=== PATIENT | male | born 1965 | race Caucasian/White ===

== ENCOUNTER 2020-03-04 14:48 | Outpatient (REF) | payer OTHER, SELFPAY ==
[2020-03-04 15:58] LABS: MANUAL DIFF FLAG NO
[2020-03-04 16:00] LABS: Basophils Absolute Auto 0.1 X10*3/uL (0.0-0.2); Basophils Percent Auto 0.6 % (0-2); Eosinophils Absolute Auto 0.2 X10*3/uL (0.0-0.4); Eosinophils Percent Auto 2.3 % (0-4); Hematocrit 43.3 % (42-52); Imm Gran Abs Auto 0.04 X10*3/uL (0.00-0.03); Imm Gran Pct Auto 0.4 % (0.0-0.4); Lymphocytes Absolute Auto 2.3 X10*3/uL (1.2-4.9); Lymphocytes Percent Auto 23.8 % (20-40); Mean Corpuscular HGB Conc 34.6 g/dl (31.0-36.0); Mean Corpuscular Hemoglobin 32.1 pg (27.0-33.0); Mean Corpuscular Volume 92.7 fL (80-98); Mean Platelet Volume 10.7 fL (9.4-12.4); Monocytes Absolute Auto 0.8 X10*3/uL (0.1-1.2); Monocytes Percent Auto 8.3 % (2-11); Neutrophils Absolute Auto 6.1 X10*3/uL (2.0-8.3); Neutrophils Percent Auto 64.6 % (45-73); Platelet Count 189 X10*3/uL (160-400); Red Blood Count 4.67 X10*6/uL (4.60-5.80); Red Cell Distribution Width 11.5 % (11.0-16.0); White Blood Count 9.5 X10*3/uL (4.8-10.8)
[2020-03-04 16:06] LABS: INTERNATIONAL NORM RATIO 1.1 (0.9-1.1)
[2020-03-04 16:32] LABS: Alanine Aminotransferase 28 U/L (0-40); Albumin Level 4.1 g/dL (3.5-5.0); Alkaline Phosphatase 117 U/L (39-117); Anion Gap 13 (12-20); Aspartate Amino Transferase 37 U/L (5-37); Bilirubin Total 0.9 mg/dL (0.0-1.0); Blood Urea Nitrogen 10 mg/dL (9-16); Calcium 8.7 mg/dL (8.4-10.2); Carbon Dioxide 27 mmol/L (22-29); Chloride 99 mmol/L (96-108); Cholesterol 202 mg/dL; Estimated Glomerular Filt Rate > 60; Glucose Fasting 98 mg/dL (60-99); HDL Cholesterol 54 mg/dL; LDL Cholesterol Calculated 117 mg/dl; Sodium 135 mmol/L (135-145); Total Protein 7.1 g/dL (6.5-8.0); Triglycerides 156 mg/dL
[2020-03-04 16:54] LABS: Thyroid Stimulating Hormone 2.28 uIU/mL (0.32-4.0)
[2020-03-07 12:07] LABS: Vitamin B1 60 nmol/L (8-30)
== END 2020-03-04 14:49 | disposition home or self-care (01) ==
LOC: HO.LAB 14:48
PROVIDERS: Absent Provider Internal Medicine; PCP Internal Medicine; Visit Provider Surgery
DX: K62.89 Other specified diseases of anus and rectum (principal); K62.5 Hemorrhage of anus and rectum; F10.10 Alcohol abuse, uncomplicated; Z86.010 Personal history of colon polyps
CPT/HCPCS: 36415; 80053; 80061; 84425; 84443; 85025; 85610; 99212

== ENCOUNTER 2020-03-05 14:38 | Outpatient (REF) | payer SELFPAY ==
[2020-03-05 16:01] LABS: Cholesterol 183 mg/dL
== END 2020-03-05 14:39 | disposition home or self-care (01) ==
LOC: HO.LNC 14:38
PROVIDERS: Visit Provider Pathology Anatomic Pathology & Clinical Pathology
DX: Z76.89 Persons encountering health services in other specified circumstances (principal)
CPT/HCPCS: 82465

== ENCOUNTER 2020-04-09 17:07 | Outpatient (REF) | payer OTHER, SELFPAY | END 2020-04-09 17:08 | disposition home or self-care (01) | LOC: HO.LAB 17:07 | PROVIDERS: Visit Provider Internal Medicine | DX: Z20.828 Contact with and (suspected) exposure to other viral communicable diseases (principal) | CPT/HCPCS: C9803; U0003 ==

== ENCOUNTER 2020-05-31 08:22 | Day surgery (SDC) | payer OTHER, SELFPAY ==
--- NOTE | 2020-05-29 14:19 | HO.ANESPROP2 ---
Documented by User: Salena Butterfield 05/29/20 14:20 HPI - Anesthesia Eval Consult details Narrative: 54yo M for Exam Under Anesthesia, Poss Sphincterotomy, Poss Hemorrhoidectomy PMFSH Active Problems Active Problems: All Active Problems (Updated 04/09/20 @ 14:53 by Susan Lynne) Anal pain (Acute) Herniated disc (Acute) IBS (irritable bowel syndrome) (Acute) Lactose intolerance (Acute) Hypertension (Acute) History of anal fissures (Acute) History of adenomatous polyp of colon (Acute) Past Medical History Medical History Anal pain Herniated disc History of adenomatous polyp of colon History of anal fissures Hypertension IBS (irritable bowel syndrome) Laceration of liver, closed Lactose intolerance Surgical History Surgical History History of cholecystectomy History of lumbar discectomy Social History Social History Smoking Status: Never smoker Use of substances other than those prescribed or required for medical reasons: Yes Substance Use Frequency: Occasionally Advance Directives: No Advance Directives Information Provided: Yes Meds Allergies Allergy/AdvReac Type Severity Reaction Status Date / Time penicillin V Allergy Intermediate hives Verified 05/31/20 08:35 bee stings Allergy Severe hives, Uncoded 04/09/20 14:54 anaphylaxis Home Medications Medication Instructions Recorded Confirmed Last Taken Type thiamine mononitrate (vit B1) 1 tab PO DAILY 04/08/20 04/08/20 Unknown History [Vitamin B-1 (mononitrate)] omeprazole magnesium [Prilosec OTC] 20 mg PO DAILY PRN 04/09/20 04/09/20 05/31/20 07:45 History Exam Exam Date and Time: May 29, 2020 141 Pertinent Lab Results Pertinent Lab Results: Laboratory Tests 03/04/20 03/04/20 15:35 15:35 WBC 9.5 Hgb 15.0 Hct 43.3 Plt Count 189 Sodium 135 Potassium 4.0 Chloride 99 Carbon Dioxide 27 BUN 10 Creatinine 0.88 Assessment and Plan Assessment Anesthesia Assessment: Chart Reviewed Documented by User: Osito Quintana 05/31/20 09:49 [facility] Past Medical History Medical History Anal pain Herniated disc History of adenomatous polyp of colon History of anal fissures Hypertension IBS (irritable bowel syndrome) Laceration of liver, closed Lactose intolerance Surgical History Surgical History History of cholecystectomy History of lumbar discectomy Social History Social History Smoking Status: Never smoker Use of substances other than those prescribed or required for medical reasons: Yes Substance Use Frequency: Occasionally Advance Directives: No Advance Directives Information Provided: Yes Meds Allergies Allergy/AdvReac Type Severity Reaction Status Date / Time penicillin V Allergy Intermediate hives Verified 05/31/20 08:35 bee stings Allergy Severe hives, Uncoded 04/09/20 14:54 anaphylaxis Home Medications Medication Instructions Recorded Confirmed Last Taken Type thiamine mononitrate (vit B1) 1 tab PO DAILY 04/08/20 04/08/20 Unknown History [Vitamin B-1 (mononitrate)] omeprazole magnesium [Prilosec OTC] 20 mg PO DAILY PRN 04/09/20 04/09/20 05/31/20 07:45 History Exam Airway Mallampati Class: II TM Dist: >3cm Neck ROM: Full
[2020-05-31 08:37] VITALS: BMI 30.1
[2020-05-31 08:47] VITALS: BP 179/100; PULSE 112; RESP 16; TEMP 36.8; O2SAT 96
--- NOTE | 2020-05-31 08:51 | MHC.SHP ---
Pre-Procedural Eval Section B Chief Complaint: Other specified diseases of anus and rectum Details of Present Illness: has periodic pain in anus, with bleeding Relevant Social History: None Present Medications: see Short Stay Collaborative assessment Medical History: Significant History (HTN, IBS) Allergies: Allergies Allergy/AdvReac Type Severity Reaction Status Date / Time penicillin V Allergy Intermediate hives Verified 05/31/20 08:35 bee stings Allergy Severe hives, Uncoded 04/09/20 14:54 anaphylaxis Review of Systems Sugical H&P ROS: Negative: Constitution, Cardiovascular, Respiratory, Neurological, Psychiatric, Hem-Onc, Allergic/Immunologic, Gastrointestinal, Genitourinary, Musculoskeletal, Integumentary, Endocrine and Eyes/Ears/Nose/Throat Exam Surgical H&P Exam: Normal: HEENT, Normal: Heart, Normal: Lungs, Normal: Extremities, Normal: Abdomen, Normal: Skin and Normal: Neurological Plan Diagnosis/Plan: Unchanged I have reviewed the history and physical and performed a pertinent physical examination on my patient. No changes have occurred unless specified.
[2020-05-31] MEDS: Lactated Ringers 1,000 ML 100 ML IVCONT (09:11)
--- NOTE | 2020-05-31 10:37 | P.OP_ITS ---
Operative Note Operative Note Date of Service: 05/31/20 Narrative: PROCEDURE: EXAM UNDER ANESTHESIA, LEFT LATERAL INTERNAL SPHINCTEROTOMY PREOP DIAGNOSIS: ANAL PAIN, POSTERIOR MIDLINE ANAL FISSURE POSTOP DIAGNOSIS: THE SAME ABOVE SURGEON: ANITA CHAVEZ MD ANESTHESIA: GENERAL ENDOTRACHEAL TUBE The patient is a 54-year-old male with periodic and severe anal pain, which he associates with bowel movements. Examination in the office revealed what appeared to be a posterior midline fissure with sentinel pile. I therefore explained to him the option of proceeding with sphincterotomy. I discussed the technique of this procedure as well as the risks, benefits, and alternatives, and he had given consent. He was brought to the operating room and placed in prone tiffanie-knife position under general anesthesia via endotracheal tube. The buttocks where retracted with wide tape laterally. The perianal area was prepped and draped in the usual sterile fashion. A surgical time-out was done. The patient received Cefotan 2 g IV preoperatively. I infiltrated the perianal with lidocaine 1%. I retracted the skin in the posterior midline and there was note of what appeared to be deep anal fissure with note of expose sphincter. Inserted the Wang Flores retractor. I examined the anal canal circumferentially. He did have some hemorrhoid columns of both in left and right side. However, did not appear to be thrombosed or inflamed There were no other lesions seen in the anal canal. I therefore proceeded to do the left lateral internal sphincterotomy. I palpated for the intersphincteric groove on the left side. I made an incision on the skin using blade 15 overlyi ng this groove. I bluntly dissected through this skin into the sphincter muscles and defined the intersphincteric plane using a fine hemostat. I placed the hemostat within the intersphincteric plane to isolate the internal sphincter fibers. I identified the internal sphincter fibers using needle-tip electrocautery all the way to the level of the dentate line. The external sphincter was protected during this procedure. I then closed the incision running chromic 3-0 stitch. We proceeded to make sure there was good hemostasis. Once hemostasis was ensured I infiltrated the perianal Marcaine 0.5% for postop anesthesia. The procedure was then completed. The patient tolerated the procedure well with no immediate complications noted. Initial and final counts of sponges and instruments were correct. Estimated blood loss about 5 cc. The patient was extubated without difficulty and transferred to the recovery room with stable vital signs.
[2020-05-31 10:40] VITALS: BP 199/118; PULSE 90; RESP 16; TEMP 36.5; O2SAT 98
[2020-05-31 10:47] VITALS: BP 177/108; PULSE 86; RESP 18; O2SAT 96
[2020-05-31 10:49] VITALS: BP 177/107; PULSE 85; RESP 20; O2SAT 95
[2020-05-31 10:54] VITALS: BP 164/104; PULSE 84; RESP 18; O2SAT 95
== END 2020-05-31 11:30 | disposition home or self-care (01) ==
PROVIDERS: PCP Internal Medicine; Visit Provider Surgery
PROC: (CPT 46080; principal; 2020-05-31 09:50)
DX: K60.2 Anal fissure, unspecified (principal); K64.9 Unspecified hemorrhoids; I10 Essential (primary) hypertension; Z86.010 Personal history of colon polyps; Z88.0 Allergy status to penicillin
CPT/HCPCS: 46080; J1100; J2250; J2405; J3010

== ENCOUNTER → 2020-06-13 11:32 | Outpatient (BNVA) | payer OTHER, SELFPAY | PROVIDERS: PCP Internal Medicine; Visit Provider Surgery | DX: K62.89 Other specified diseases of anus and rectum (principal) | CPT/HCPCS: 99212 ==

== ENCOUNTER 2021-04-21 14:30 | Outpatient (REF) | payer OTHER, SELFPAY ==
--- NOTE | 2021-04-21 15:28 | MHC.AU.ANO ---
Adult Audiological Evaluation Date of Visit: 04/21/21 Reason for Appointment: Patient has had family and friends start expressing concern for his hearing. They have been saying he is talking louder than usual, especially if he is in a noisy setting. He reports that he gets dry, itchy skin around the opening of his ear canals. He ears also sometimes feel blocked. Has hearing been tested previously?: No Ear History: Ear Deformity: None Reported Recent Ear Drainage: None Reported Recent Ear Pain: None Reported Family History of Hearing Loss?: No Recent Ear Infections: Swimmer's Ear 2 years ago Ear Infections in Childhood: None Reported History of Ear Wax Buildup: None Reported Previous Ear Surgery: None Reported Bothersome Tinnitus/Ringing/Noises in Ears: None Reported Ear used on the phone: Left Ear Blocked/Full Sensation in Ear(s): Both Ears History of occupational noise exposure?:None Reported Medical History: Medical History: Gallbladder removal 19 years ago, Surgery on lacerated liver in 1988, Back Surgery 2.5 years ago Otoscopy: Right Ear: Dry skin in canals. Minimal cerumen. Left Ear: Dry skin in canals. Minimal cerumen. Tympanometry: Tympanometry performed due to: Patient reports sensation that ears are blocked/plugged. Right Ear: Normal Middle Ear System (Type A) Left Ear: Normal Middle Ear System (Type A) Hearing Evaluation: Transducer(s) Used: Insert Earphones Method: Conventional Audiometry Stimuli Used: Pure Tones Right Ear: Description of Hearing: Overall normal hearing. One borderline-normal threshold at 6000 Hz. Left Ear: Description of Hearing: Overall normal hearing Speech Recognition Threshold (SRT): Method Used: Recorded Lists Stimuli Used: Spondee Words Right Ear: 10 dBHL Left Ear: 10 dBHL Word Discrimination: Method: Recorded Lists Word Lists Used: W-22 Right Ear: 96% at 50 dBHL Left Ear: 96% at 50 dBHL QuickSIN: Tested binaurally at 50 dBHL: 1 dB SNR loss, which suggests normal ability to understand speech in noise Interpretation of Results: At this time, patient's hearing is overall within normal range. Recommendations: Audiological re-evaluation if changes are noted. Follow-up with PCP regarding dry skin in canals and blocked feeling in ears if problems persist. Diagnosis: Primary Diagnosis: H93.293 Abnormal Auditory Perception Signature: Provider: Shelby Andrade, CCC-A
== END 2021-04-21 14:31 | disposition home or self-care (01) ==
LOC: HO.SH 14:30
PROVIDERS: Visit Provider Internal Medicine
DX: Z13.5 Encounter for screening for eye and ear disorders (principal); H93.293 Other abnormal auditory perceptions, bilateral
CPT/HCPCS: 92557; 92567

== ENCOUNTER 2021-05-19 14:00 | Outpatient (RCR) | payer OTHER, SELFPAY ==
--- NOTE | 2021-04-08 09:50 | MHC.PT.EP ---
[facility] [place] Office [place] Office [place] Office [address] [phone] F: [phone] F: [phone] F: [phone] F: [phone] Physical Therapy Plan of Care Date of Evaluation: Date of Surgery: Diagnosis: ACUTE LOW BACK PAIN Assessment: KIET IS A PLEASANT 55 YO WHO PRESENTS WITH INCREASING LOW BACK PAIN AND LE SYMPTOMS FOLLOWING HEAVY LIFTING AT WORK. UPON EXAM IMPAIRMENTS INCLUDE DECREASED LUMBAR AND LE ROM AND STRENGTH, TIGHT HIP FLEXORS AND HAMSTRINGS LEADING TO ALTERED PELVIC POSITIONING AND INCREASED COMPRESSION ON SPINE. LUMBAR EXTENSION DECREASES THESE SYMPTOMS. FUNCTIONAL LIMITATIONS INCLUDE DECREASED ABILITY TO PERFORM HOMEMAKING AND SELF CARE TASKS, DECREASED ABILITY TO PERFORM LIFTING, PUSHING, PULLING AND CARRYING. HE REPORTS DECREASED PARTICIPATION IN RECREATIONAL AND COMMUNITY ACTIVITIES, DISRUPTED SLEEP. A PT IS A GOOD CANDIDATE FOR SKILLED PT DUE TO AGE, POTENTIAL REMEDIATION OF IMPAIRMENTS, TYPICAL DISEASE/CONDITION PROGRESSION AND PROGNOSIS, COMORBIDITIES, AND MOTIVATION. PT WOULD BENEFIT FROM TAILORED PROGRAM OF THERAPEUTIC ACTIVITIES, FUNCTIONAL TRAINING, GAIT TRAINING, POSTURAL EDUCATION, NEUROMUSCULAR RE-EDUCATION, AND MODALITIES NEEDED. Frequency and Duration: The patient will be seen 2 X WEEK FOR 4 WEEKS Short Term Goals: INITIATE HEP AND PROMOTE SELF MANAGEMENT OF SYMPTOMS IN 2 VISITS Alf Goals: IN 4 WEEKS FULL, PAIN FREE LUMBAR ROM TO PERFORM FULL FUNCTIONAL SQUAT WITH CORRECT MECHANICS AND NO VERBAL CUING TO PERFORM 3:3 LIFTING TASKS UP TO 50# WITHOUT CUING AND PAIN NO GREATER THAN 2/10 INDEPENDENT HEP AND SELF MANAGEMENT OF ANY RESIDUAL SYMPTOMS Treatment Plan: Modalities to reduce pain, spasms and effusion. Manual therapy to restore motion and function. Therapeutic exercise to improve strength and flexibility. Neuromuscular re-education for posture and balance. Therapeutic activities to return to functional activities of daily living. Electronically signed by: BARTOLO GASTELUM PT, DPT Please sign and return to therapist. Thank you for your referral.
== END 2021-06-30 16:23 | disposition home or self-care (01) ==
LOC: HO.PT 14:00
PROVIDERS: PCP Internal Medicine; Visit Provider Internal Medicine
DX: M54.50 Low back pain, unspecified (principal)
CPT/HCPCS: 97110; 97162; 97530; 97535

== ENCOUNTER 2021-05-21 12:47 | Outpatient (REF) | payer OTHER, SELFPAY ==
[2021-05-21 13:07] LABS: MANUAL DIFF FLAG NO
[2021-05-21 13:42] LABS: Basophils Absolute Auto 0.1 X10*3/uL (0.0-0.2); Basophils Percent Auto 0.6 % (0-2); Eosinophils Absolute Auto 0.4 X10*3/uL (0.0-0.4); Eosinophils Percent Auto 4.5 % (0-4); Hematocrit 44.3 % (42.0-52.0); Hemoglobin 15.2 g/dl (14.0-18.0); Imm Gran Abs Auto 0.05 X10*3/uL (0.00-0.03); Imm Gran Pct Auto 0.6 % (0.0-0.4); Lymphocytes Absolute Auto 2.8 X10*3/uL (1.2-4.9); Lymphocytes Percent Auto 32.3 % (20-40); Mean Corpuscular HGB Conc 34.3 g/dl (31.0-36.0); Mean Corpuscular Hemoglobin 31.2 pg (27.0-33.0); Mean Platelet Volume 11.2 fL (9.4-12.4); Monocytes Absolute Auto 0.8 X10*3/uL (0.1-1.2); Monocytes Percent Auto 8.6 % (2-11); Neutrophils Absolute Auto 4.7 x10*3/uL (2.0-8.3); Neutrophils Percent Auto 53.4 % (45-73); Platelet Count 194 X10*3/uL (160-400); Red Blood Count 4.87 X10*6/uL (4.60-5.80); Red Cell Distribution Width 12.2 % (11.0-16.0); White Blood Count 8.7 X10*3/uL (4.8-10.8)
[2021-05-21 13:46] LABS: Prothrombin Time 11.9 SEC (9.9-13.0)
[2021-05-21 14:07] LABS: Alanine Aminotransferase 38 U/L (0-40); Albumin Level 4.1 g/dL (3.5-5.0); Alkaline Phosphatase 85 U/L (39-117); Anion Gap 14 (12-20); Aspartate Amino Transferase 47 U/L (5-37); Bilirubin Total 1.6 mg/dL (0.0-1.0); Blood Urea Nitrogen 11 mg/dL (9-16); Calcium 9.6 mg/dL (8.4-10.2); Carbon Dioxide 26 mmol/L (22-29); Chloride 103 mmol/L (96-108); Cholesterol 215 mg/dL; Estimated Glomerular Filt Rate > 60; Glucose Fasting 117 mg/dL (60-99); HDL Cholesterol 41 mg/dL; LDL Cholesterol Calculated 120 mg/dl; Potassium 4.2 mmol/L (3.3-5.1); Sodium 139 mmol/L (135-145); Total Protein 7.4 g/dL (6.5-8.0); Triglycerides 271 mg/dL
[2021-05-21 14:30] LABS: PSA,Total (Free>4and<10) 0.45 ng/mL (0.00-4.00); Thyroid Stimulating Hormone 4.67 uIU/mL (0.32-4.0); Vitamin D 25-OH Total 14.7 ng/mL (>30)
[2021-05-21 15:03] LABS: Folate 14.5 ng/mL (> or = 4.0); Vitamin B12 427 pg/mL (200-900)
[2021-05-25 13:17] LABS: Vitamin B1 17 nmol/L (8-30)
== END 2021-05-21 12:48 | disposition home or self-care (01) ==
LOC: HO.LAB 12:47
PROVIDERS: PCP Internal Medicine; Visit Provider Internal Medicine
DX: Z12.5 Encounter for screening for malignant neoplasm of prostate (principal); F10.10 Alcohol abuse, uncomplicated
CPT/HCPCS: 36415; 80053; 80061; 82306; 82607; 82746; 84153; 84425; 84443; 85025; 85610

== ENCOUNTER 2022-01-27 18:25 | Inpatient (IN) | payer OTHER, SELFPAY ==
--- NOTE | ~2022-01-27 | CT_ITS ---
EXAMINATION: CT ABDOMEN AND PELVIS WITH CONTRAST CLINICAL INFORMATION: Mid abdominal pain, question pancreatitis COMPARISON: None TECHNIQUE: Multidetector volumetric images were obtained from the superior aspect of the liver through the pubic symphysis following administration 85 mL of Omnipaque 350 intravenous contrast. Sagittal and coronal reformatted images were obtained on the technologist's workstation. Oral contrast: No This CT examination was performed using dose optimization techniques as appropriate, variously including the following: *Automated exposure control *Adjustment of mA and/or kV according to patient size (this includes techniques or standardized protocols for targeted exams where dose is matched to indication/reason for exam; i.e. extremities or head) *Use of iterative reconstruction technique DLP: 677 mGy-cm FINDINGS: LUNG BASES: The visualized lung bases are unremarkable. LIVER, GALLBLADDER, AND BILIARY TREE: The liver is normal in size, shape, and attenuation. Right hepatic lobe calcification may represent a granuloma. No biliary ductal dilatation is present. Status post cholecystectomy. PANCREAS: There is mild stranding adjacent to the pancreatic head. SPLEEN: Unremarkable. ADRENAL GLANDS: Unremarkable. KIDNEYS AND URETERS: The kidneys are normal in size, shape, and attenuation. No hydronephrosis, hydroureter, or calculi seen. No perinephric stranding. BLADDER: Unremarkable. GASTROINTESTINAL TRACT: No evidence of bowel obstruction. Assessment for wall thickening in some segments of the colon is limited due to luminal collapse, though no significant pericolonic stranding is seen to strongly suggest a colitis. There is mild to moderate colonic diverticulosis. The appendix is unremarkable. No free fluid or free air is seen. ABDOMINAL WALL: No significant hernia is appreciated. LYMPH NODES: Normal. VASCULAR: Scattered atherosclerotic calcifications along the aorta. PELVIC VISCERA: Unremarkable. OSSEOUS STRUCTURES: There is degenerative change at L5-S1. CT/CT abdomen pelvis w IV con IMPRESSION: Mild stranding adjacent to the pancreatic head, concerning for pancreatitis. Correlation with laboratory values is recommended.
[2022-01-27 18:26] VITALS: BP 223/89; PULSE 71; RESP 18; TEMP 36.8; O2SAT 100; BMI 29.5
[2022-01-27] MEDS: Ondansetron ODT 4 MG TAB.RAPDIS TRANSLINGU (18:31)
[2022-01-27 20:32] LABS: Hematocrit 46.7 % (42.0-52.0); Hemoglobin 16.6 g/dl (14.0-18.0); Mean Corpuscular HGB Conc 35.5 g/dl (31.0-36.0); Mean Corpuscular Hemoglobin 30.7 pg (27.0-33.0); Mean Corpuscular Volume 86.5 fL (80.0-98.0); Mean Platelet Volume 10.8 fL (9.4-12.4); Platelet Count 210 X10*3/uL (160-400); Red Cell Distribution Width 11.5 % (11.0-16.0); White Blood Count 15.5 X10*3/uL (4.8-10.8)
[2022-01-27 20:49] LABS: Alanine Aminotransferase 27 U/L (0-40); Albumin Level 4.6 g/dL (3.5-5.0); Alkaline Phosphatase 113 U/L (39-117); Anion Gap 21 (12-20); Aspartate Amino Transferase 36 U/L (5-37); Bilirubin Direct 0.4 mg/dL (0.0-0.5); Bilirubin Total 1.2 mg/dL (0.0-1.0); Blood Urea Nitrogen 9 mg/dL (9-16); Calcium 9.3 mg/dL (8.4-10.2); Carbon Dioxide 27 mmol/L (22-29); Chloride 93 mmol/L (96-108); Creatinine Clr Calc Pharmacy 119.1; Estimated Glomerular Filt Rate > 60; Glucose Random 131 mg/dL (60-115); Lipase 120 U/L (8-78); Potassium 3.8 mmol/L (3.3-5.1); Sodium 137 mmol/L (135-145); Total Protein 8.1 g/dL (6.5-8.0)
[2022-01-27 20:55] LABS: COVID-19 Test Negative (Negative)
[2022-01-27 23:53] VITALS: BP 203/104; PULSE 63; RESP 20; TEMP 37; O2SAT 99
--- NOTE | 2022-01-27 23:59 | ECG_ITS ---
Test Reason : epigastric pain Blood Pressure : / mmHG Vent. Rate : 063 BPM Atrial Rate : 063 BPM P-R Int : 198 ms QRS Dur : 096 ms QT Int : 450 ms P-R-T Axes : 000 032 028 degrees QTc Int : 460 ms Normal sinus rhythm Normal ECG No previous ECGs available Referred By: Generic ED Physician Electronically Signed By:ANGELI LEVIN MD
[2022-01-28] VITALS (12 sets, daily range): BP systolic 167–206; BP diastolic 80–111; PULSE 67–100; RESP 12–20; TEMP 36.4–37; O2SAT 94–98
[2022-01-28 00:34] LABS: Troponin-I High Sensitivity 6.4 ng/L (<3.5-35.0)
--- NOTE | 2022-01-28 00:34 | ED.ABDPAIN ---
HPI - Abdominal Pain General Chief Complaint: Abdominal Pain Stated Complaint: Stomach pain Time Seen by Provider: 01/28/22 00:29 Source: patient Mode of arrival: ambulatory Limitations: no limitations History of Present Illness HPI narrative: Patient's history of alcohol abuse use 8-10 beers a day, gastroesophageal reflux disease comes here for upper abdominal pain last 2 days with nausea and vomiting unable to take any p.o. fluids pain was radiating to the back never had similar pain in the past patient is status post cholecystectomy about 20 years ago Related Data Home Medications Medication Instructions Recorded Confirmed cholecalciferol (vitamin D3) 50 50 mcg PO DAILY 01/28/22 01/28/22 mcg (2,000 unit) tablet omeprazole 20 mg capsule,delayed 20 mg PO DAILY PRN Abdominal Pain 01/28/22 01/28/22 release thiamine HCl (vitamin B1) 100 mg 1 tab PO DAILY 01/28/22 01/28/22 tablet (Vitamin B-1) Allergies Allergy/AdvReac Type Severity Reaction Status Date / Time penicillin V Allergy Intermediate hives Verified 06/13/20 11:44 bee stings Allergy Severe hives, Uncoded 04/09/20 14:54 anaphylaxis Review of Systems Review of Systems Yes all other systems are reviewed and are negative PMFSH Past Medical History Medical History Anal pain Herniated disc History of adenomatous polyp of colon History of anal fissures Hypertension IBS (irritable bowel syndrome) Laceration of liver, closed Lactose intolerance Surgical History History of cholecystectomy History of hemorrhoidectomy History of lumbar discectomy Social History Social History Household Members: Other Household Members Other:: mother Housing: House Do you presently have visiting nurse or other home services: No Alcohol intake: current Alcohol intake frequency: 3 or more drinks per day Patient Tobacco Use Status: Never used Tobacco Substance Use Type: Marijuana service: No Current occupational status: employed Physical Exam ED Vital Signs: Vital Signs - 24 hr 01/28/22 02:08 01/28/22 04:00 Temperature 98.1 F Pulse Rate 100 Respiratory Rate 18 16 Blood Pressure 167/103 H Pulse Oximetry 94 Oxygen Delivery Method Room Air BMI result Body Mass Index 29.5 Appearance: Alert. Oriented X3. No acute distress. Eyes: PERRLA, No Nystagmus ENT: Pharynx normal. Oral Mucosa moist Neck: Normal inspection. Neck supple. CVS: Normal heart rate and rhythm. Pulses normal. Respiratory: No respiratory distress. Equal air entry bilateral, no wheezing/rales/rhonchi Abdomen: Soft and nontender. Bowel sounds are present, no mass palpable, no CVA tenderness Skin: Skin warm and dry. Normal skin color. Normal skin turgor. Extremities: No lower extremity edema. No calf tenderness Neuro: Oriented X 3. No motor deficit. No sensory deficit.No cerebellar signs , cranial nerves II-XII intact MDM - Abdominal Pain Lab Data Result diagrams: 01/28/22 06:38 01/28/22 06:38 Labs: Lab Results 01/27/22 01/27/22 01/27/22 Range/Units 20:25 20:25 20:25 WBC 15.5 H (4.8-10.8) X10*3/uL RBC 5.40 (4.60-5.80) X10*6/uL Hgb 16.6 (14.0-18.0) g/dl Hct 46.7 (42.0-52.0) % MCV 86.5 (80.0-98.0) fL MCH 30.7 (27.0-33.0) pg MCHC 35.5 (31.0-36.0) g/dl RDW 11.5 (11.0-16.0) % Plt Count 210 (160-400) X10*3/uL MPV 10.8 (9.4-12.4) fL Absolute Nucleated RBC 0.000 (0.0-0.012) X10*3/uL Nucleated RBC % (auto) 0.0 (0.0-0.2) /100WBC Sodium 137 (135-145) mmol/L Potassium 3.8 (3.3-5.1) mmol/L Chloride 93 L (96-108) mmol/L Carbon Dioxide 27 (22-29) mmol/L Anion Gap 21 H (12-20) BUN 9 (9-16) mg/dL Creatinine 0.78 (0.5-1.4) mg/dL Estim Creat Clear Calc 119.1 Estimated GFR > 60 Random Glucose 131 H (60-115) mg/dL Calcium 9.3 (8.4-10.2) mg/dL Total Bilirubin 1.2 H (0.0-1.0) mg/dL Direct Bilirubin 0.4 (0.0-0.5) mg/dL AST 36 (5-37) U/L ALT 27 (0-40) U/L Alkaline Phosphatase 113 D (39-117) U/L Troponin I High Sens (<3.5-35.0) ng/L Total Protein 8.1 H (6.5-8.0) g/dL Albumin 4.6 (3.5-5.0) g/dL Triglycerides 473 mg/dL Cholesterol 183 mg/dL LDL Cholesterol, Calc TNP HDL Cholesterol 51 D mg/dL Lipase 120 H (8-78) U/L Urine Color Urine Appearance Urine pH (5.0-9.0) Ur Specific [place] (1.005-1.025) Urine Protein (Neg-Trace) mg/dL Urine Glucose (UA) (Negative) mg/dL Urine Ketones (Negative) mg/dL Urine Blood (Negative) Urine Nitrite (Negative) Ur Leukocyte Esterase (Negative) Urine RBC (0-2) /HPF Urine WBC (0-5) /HPF Ur Squamous Epith Cells (0-2) /HPF Urine Bacteria (None Seen) Hyaline Casts (0-2) /LPF COVID-19 (RAJIV) Negative (Negative) COVID-19 Clin Com See Note 01/27/22 01/28/22 Range/Units 20:25 02:17 WBC (4.8-10.8) X10*3/uL RBC (4.60-5.80) X10*6/uL Hgb (14.0-18.0) g/dl Hct (42.0-52.0) % MCV (80.0-98.0) fL MCH (27.0-33.0) pg MCHC (31.0-36.0) g/dl RDW (11.0-16.0) % Plt Count (160-400) X10*3/uL MPV (9.4-12.4) fL Absolute Nucleated RBC (0.0-0.012) X10*3/uL Nucleated RBC % (auto) (0.0-0.2) /100WBC Sodium (135-145) mmol/L Potassium (3.3-5.1) mmol/L Chloride (96-108) mmol/L Carbon Dioxide (22-29) mmol/L Anion Gap (12-20) BUN (9-16) mg/dL Creatinine (0.5-1.4) mg/dL Estim Creat Clear Calc Estimated GFR Random Glucose (60-115) mg/dL Calcium (8.4-10.2) mg/dL Total Bilirubin (0.0-1.0) mg/dL Direct Bilirubin (0.0-0.5) mg/dL AST (5-37) U/L ALT (0-40) U/L Alkaline Phosphatase (39-117) U/L Troponin I High Sens 6.4 (<3.5-35.0) ng/L Total Protein (6.5-8.0) g/dL Albumin (3.5-5.0) g/dL Triglycerides mg/dL Cholesterol mg/dL LDL Cholesterol, Calc HDL Cholesterol mg/dL Lipase (8-78) U/L Urine Color Yellow Urine Appearance Clear Urine pH 7.5 (5.0-9.0) Ur Specific [place] >= 1.030 H (1.005-1.025) Urine Protein 30 (1+) H (Neg-Trace) mg/dL Urine Glucose (UA) Negative (Negative) mg/dL Urine Ketones Negative (Negative) mg/dL Urine Blood Negative (Negative) Urine Nitrite Negative (Negative) Ur Leukocyte Esterase Negative (Negative) Urine RBC 0-2 (0-2) /HPF Urine WBC 0-5 (0-5) /HPF Ur Squamous Epith Cells 0-2 (0-2) /HPF Urine Bacteria None Seen (None Seen) Hyaline Casts 0-2 (0-2) /LPF COVID-19 (RAJIV) (Negative) COVID-19 Clin Com Discharge Plan Discharge Clinical Impression: Pancreatitis Patient Disposition: Admitted As Inpatient Interventions: Admission Worksheet (ED) Last Done: 01/28/22 18:28 Discharge Date/Time: 01/28/22 19:10
[2022-01-28] MEDS: 0.9 % Sodium Chloride 1,000 ML 999 ML IV (00:44)
[2022-01-28 00:58] LABS: Cholesterol 183 mg/dL; HDL Cholesterol 51 mg/dL; Triglycerides 473 mg/dL
[2022-01-28] MEDS: iohexoL 350 MG/ML 100 ML INFUS..BTL 85 ML IV (01:10)
[2022-01-28] MEDS: ondansetron HCL 4 MG/2 ML VIAL IVPUSH (01:27)
[2022-01-28] MEDS: Morphine Sulfate 4 MG/ML CARTRIDGE IVPUSH ×2 (01:27→18:12)
[2022-01-28] MEDS: Prochlorperazine Edisylate 10 MG/2 ML VIAL IVPUSH (02:08)
[2022-01-28] MEDS: HYDROmorphone HCl 2 MG/ML VIAL IVPUSH (02:08)
[2022-01-28 02:25] LABS: Appearance Urine Clear; Color Urine Yellow; Glucose Urine UA Negative (Negative); Leukocyte Esterase Urine Negative (Negative); Nitrite Urine Negative (Negative); PH 7.5 (5.0-9.0); Specific Gravity - Urine >= 1.030 (1.005-1.025); UMIC TRIGGER UACC YES; Urine Blood Negative (Negative); Urine Ketones Negative (Negative); Urine Protein 30 (1+) mg/dL (Neg-Trace)
[2022-01-28 02:29] LABS: Bacteria Urine None Seen (None Seen); Hyaline Casts Urine 0-2 /LPF (0-2); RBC Urine 0-2 /HPF (0-2); Squamous Epithelial Cell Urine 0-2 /HPF (0-2); WBC Urine 0-5 /HPF (0-5)
[2022-01-28] MEDS: Metoprolol Tartrate 5 MG/5 ML VIAL IVPUSH (03:03)
--- NOTE | 2022-01-28 04:52 | P.HPHOSP_ITS ---
History of Present Illness Date of Service: 01/28/22 Chief Complaint: Abdominal Pain This is a 56-year-old male with a pertinent history of gastroesophageal reflux disease who presents to the emergency department for evaluation of abdominal pain. Patient states he had sudden-onset severe epigastric pain about 24 hours prior to presentation. It was nonradiating, constant, progressive and worse with p.o. intake. No relieving factors. States it was the worst pain he has ever experienced. It was associated with diarrhea and nonbloody emesis. Patient states he could not tolerate p.o. intake due to severe nausea and occasional vomiting. Does endorse that he drinks about 8-10 beers a day x3-4 days a week. Patient went to a game 1 day prior to the onset of abdominal pain and states he drank more alcohol than he usually does. Denies fever, chills, shortness of breath, chest discomfort, changes in urinary habits. Patient's gallbladder was removed about 20 years ago. In the emergency department imaging revealed mild stranding adjacent to pancreatic head Review of Systems Review of Systems: All 13 review of systems are negative except as noted in [facility] Medical History Anal pain Herniated disc History of adenomatous polyp of colon History of anal fissures Hypertension IBS (irritable bowel syndrome) Laceration of liver, closed Lactose intolerance Functional capacity: independent ambulation Surgical History History of cholecystectomy History of hemorrhoidectomy History of lumbar discectomy Social History Advance Directives: No Advance Directives Information Provided: No Meds Allergies Allergy/AdvReac Type Severity Reaction Status Date / Time penicillin V Allergy Intermediate hives Verified 06/13/20 11:44 bee stings Allergy Severe hives, Uncoded 04/09/20 14:54 anaphylaxis Active Medications: Current Medications Thiamine HCl 100 mg/ Sodium (Chloride) 101 mls @ 202 mls/hr IV DAILY FORMERLY [facility], [facility] Pharmacy Consult (Consult Rx Perform Med Rec) 1 each MISCELLANE ONCE STA Stop: 01/28/22 04:32 Home Medications Medication Instructions Recorded Confirmed Last Taken Type thiamine HCl (vitamin B1) 100 mg 1 tab PO DAILY 01/28/22 01/28/22 Unknown History tablet (Vitamin B-1) Physical Exam Vital Signs and Narrative: Vital Signs: Last Vital Signs Temp 98.1 F 01/28/22 04:00 Pulse 100 01/28/22 04:00 Resp 16 01/28/22 04:00 BP 167/103 H 01/28/22 04:00 Pulse Ox 94 01/28/22 04:00 O2 Del Method 01/28/22 04:00 BMI result Body Mass Index 29.5 Middle-aged male lying in bed in mild distress Neck supple, no JVD Tachycardic with regular rhythm, S1-S2 heard Regular breath sounds bilaterally, no wheezing or crackles appreciated Abdomen with tenderness to epigastric region with mild palpation, no guarding, no rebound tenderness, no rigidity Patient is awake, alert and oriented to self, place, time and person ; no focal motor deficit Psych: Normal mood No pedal edema Results Labs CBC and Chem 7: 01/27/22 20:25 01/27/22 20:25 Labs: Laboratory Results - last 24 hr 01/27/22 01/27/22 01/27/22 20:25 20:25 20:25 MCV 86.5 MCH 30.7 MCHC 35.5 RDW 11.5 Plt Count 210 MPV 10.8 Absolute Nucleated RBC 0.000 Nucleated RBC % (auto) 0.0 Anion Gap 21 H Estim Creat Clear Calc 119.1 Estimated GFR > 60 Random Glucose 131 H Calcium 9.3 Total Bilirubin 1.2 H Direct Bilirubin 0.4 AST 36 ALT 27 Alkaline Phosphatase 113 D Troponin I High Sens Total Protein 8.1 H Albumin 4.6 Triglycerides 473 Cholesterol 183 LDL Cholesterol, Calc TNP HDL Cholesterol 51 D Lipase 120 H Urine Color Urine Appearance Urine pH Ur Specific [place] Urine Protein Urine Glucose (UA) Urine Ketones Urine Blood Urine Nitrite Ur Leukocyte Esterase Urine RBC Urine WBC Ur Squamous Epith Cells Urine Bacteria Hyaline Casts COVID-19 (RAJIV) Negative COVID-19 Clin Com See Note 01/27/22 01/28/22 20:25 02:17 MCV MCH MCHC RDW Plt Count MPV Absolute Nucleated RBC Nucleated RBC % (auto) Anion Gap Estim Creat Clear Calc Estimated GFR Random Glucose Calcium Total Bilirubin Direct Bilirubin AST ALT Alkaline Phosphatase Troponin I High Sens 6.4 Total Protein Albumin Triglycerides Cholesterol LDL Cholesterol, Calc HDL Cholesterol Lipase Urine Color Yellow Urine Appearance Clear Urine pH 7.5 Ur Specific [place] >= 1.030 H Urine Protein 30 (1+) H Urine Glucose (UA) Negative Urine Ketones Negative Urine Blood Negative Urine Nitrite Negative Ur Leukocyte Esterase Negative Urine RBC 0-2 Urine WBC 0-5 Ur Squamous Epith Cells 0-2 Urine Bacteria None Seen Hyaline Casts 0-2 COVID-19 (RAJIV) COVID-19 Clin Com Imaging Radiologist's Impressions: Impressions Abdomen/Pelvis CT 01/28/22 01:09 IMPRESSION: Mild stranding adjacent to the pancreatic head, concerning for pancreatitis. Correlation with laboratory values is recommended. Assessment and Plan (1) Pancreatitis: Status: Acute (2) Alcohol use: Status: Acute (3) GERD (gastroesophageal reflux disease): Status: Acute Plan This is a 56-year-old male with a pertinent history of gastroesophageal reflux disease who presents to the emergency department for evaluation of abdominal pain. #. Acute pancreatitis, mild -likely related to alcohol use. Will admit patient and keep NPO for bowel rest. Resuscitate with IV crystalloids and pain management with IV morphine p.r.n. Advance diet as tolerated #. Alcohol use disorder -counseled patient extensively and patient understands. Is motivated to quit. Monitor for withdrawal #. Gastroesophageal reflux disease -on omeprazole DVT prophylaxis: Lovenox 40 mg daily Diet: NPO Full code Patient will require two night minimum hospital stay for IV fluid resuscitation and IV pain management for pancreatitis Quality Stroke Does the patient have a stroke diagnosis?: No VTE Prior VTE?: No VTE Risk Level:: Medical - moderate - high VTE Device Contraindication: Treatment Not Indicated VTE Drug Contraindication: N/A - Med Ordered
[2022-01-28] MEDS: 0.9 % Sodium Chloride 1,000 ML 250 ML IV (05:38)
[2022-01-28] MEDS: Enoxaparin Sodium 40 MG/0.4 ML SYRINGE SUBCUT (05:39)
[2022-01-28 06:55] LABS: Basophils Percent Auto 0.3 % (0-2); Eosinophils Percent Auto 0.1 % (0-4); Hematocrit 43.4 % (42.0-52.0); Hemoglobin 15.4 g/dl (14.0-18.0); Imm Gran Abs Auto 0.07 X10*3/uL (0.00-0.03); Imm Gran Pct Auto 0.5 % (0.0-0.4); Lymphocytes Absolute Auto 1.8 X10*3/uL (1.2-4.9); Lymphocytes Percent Auto 12.1 % (20-40); MANUAL DIFF FLAG SCAN; Mean Corpuscular HGB Conc 35.5 g/dl (31.0-36.0); Mean Corpuscular Hemoglobin 31.2 pg (27.0-33.0); Mean Platelet Volume 11.1 fL (9.4-12.4); Monocytes Absolute Auto 2.2 X10*3/uL (0.1-1.2); Monocytes Percent Auto 14.7 % (2-11); Neutrophils Percent Auto 72.3 % (45-73); Platelet Count 173 X10*3/uL (160-400); Red Blood Count 4.93 X10*6/uL (4.60-5.80); Red Cell Distribution Width 11.6 % (11.0-16.0); SCAN SMEAR FLAG 1; White Blood Count 15.1 X10*3/uL (4.8-10.8)
[2022-01-28 07:02] LABS: Anion Gap 18 (12-20); Blood Urea Nitrogen 7 mg/dL (9-16); Calcium 8.4 mg/dL (8.4-10.2); Carbon Dioxide 25 mmol/L (22-29); Chloride 98 mmol/L (96-108); Estimated Glomerular Filt Rate > 60; Glucose Random 124 mg/dL (60-115); Potassium 3.4 mmol/L (3.3-5.1); Sodium 138 mmol/L (135-145)
[2022-01-28 08:09] LABS: SLIDE REVIEW VERIFIED
[2022-01-28] MEDS: Thiamine HCL 100 MG in 0.9 % Sodium Chloride 100 ML 202 MG IV (08:35)
[2022-01-28] MEDS: Omeprazole 40 MG CAPSULE.DR PO (08:51)
--- NOTE | 2022-01-28 09:04 | PHA.MEDREC ---
Pharmacy Consult ? Medication Reconciliation Pharmacy has completed the medication reconciliation.
[2022-01-28] MEDS: amLODIPine Besylate 5 MG TABLET PO (09:07)
[2022-01-28] MEDS: 0.9 % Sodium Chloride Flush 3 ML SYRINGE IVFLUSH ×2 (09:08→18:13)
--- NOTE | 2022-01-28 10:20 | PM.EVENT ---
Event Note Date of Service: 01/28/22 Event Note: Pt seen and examined. Admitted this morning with acute pancreatitis, elevated bP not on meds, drinks moderate to heavy per his report therefore high risk for withdrawal. Start Phenobarb. Add Norvasc for tamika BP, advance to clear diet. Monitor WBC, no si/sx of infection
[2022-01-28] MEDS: PHENobarbitaL sodium 130 MG/ML IM ONCE 230 MG IM (12:25)
--- NOTE | 2022-01-28 15:26 | MHC.CM.PN ---
Met with patient in regards to discharge planning. Patient lives with his mother, ambulates independently and had no services prior to coming to the hospital. No services anticipated to be needed. PCP verified. Patient received 1 J&J vaccine. Patient denies having a HCP. Information provided. Patient not interested in completing one at this time. Patient's mother will transport him home when medically stable. Continue to monitor for d/c needs.
[2022-01-28] MEDS: PHENobarbitaL sodium 130 MG/ML VIAL IM Q3Hx2 170 MG IM ×2 (15:49→18:11)
[2022-01-29] MEDS: Enoxaparin Sodium 40 MG/0.4 ML SYRINGE SUBCUT (05:00)
[2022-01-29] MEDS: 0.9 % Sodium Chloride Flush 3 ML SYRINGE IVFLUSH (05:01)
[2022-01-29 05:59] LABS: Hemoglobin 16.2 g/dl (14.0-18.0); Mean Corpuscular HGB Conc 34.5 g/dl (31.0-36.0); Mean Corpuscular Hemoglobin 30.9 pg (27.0-33.0); Mean Corpuscular Volume 89.5 fL (80.0-98.0); Mean Platelet Volume 11.1 fL (9.4-12.4); Platelet Count 176 X10*3/uL (160-400); Red Blood Count 5.25 X10*6/uL (4.60-5.80); Red Cell Distribution Width 11.7 % (11.0-16.0); White Blood Count 10.3 X10*3/uL (4.8-10.8)
[2022-01-29 06:48] VITALS: BP 136/90; PULSE 92; RESP 18; TEMP 36.1; O2SAT 95
[2022-01-29] MEDS: amLODIPine Besylate 5 MG TABLET PO (08:34)
[2022-01-29] MEDS: Omeprazole 40 MG CAPSULE.DR PO (08:34)
[2022-01-29] MEDS: Cholecalciferol (Vitamin D3) 25 MCG TABLET 50 MCG PO (08:34)
[2022-01-29] MEDS: PHENobarbitaL 15 MG TABLET 45 MG PO (08:34)
[2022-01-29] MEDS: Thiamine HCL 100 MG in 0.9 % Sodium Chloride 100 ML 202 MG IV (08:36)
--- NOTE | 2022-01-29 11:47 | PM.DS ---
DS: Providers Provider Date of Service: 01/29/22 Date of admission: 01/28/22 04:50 Primary care physician: Alejo Díaz DO DS: Diagnosis Discharge Diagnosis (1) Pancreatitis: Status: Acute (2) Alcohol use: Status: Acute (3) GERD (gastroesophageal reflux disease): Status: Acute DS: Summary Hospital Course Hospital Course: Chief Complaint: Abdominal Pain This is a 56-year-old male with a pertinent history of gastroesophageal reflux disease who presents to the emergency department for evaluation of abdominal pain.? Patient states he had sudden-onset severe epigastric pain about 24 hours prior to presentation.? It was nonradiating, constant, progressive and worse with p.o. intake.? No relieving factors.? States it was the worst pain he has ever experienced.? It was associated with diarrhea and nonbloody emesis.? Patient states he could not tolerate p.o. intake due to severe nausea and occasional vomiting.? Does endorse that he drinks about 8-10 beers a day x3-4 days a week.? Patient went to a game 1 day prior to the onset of abdominal pain and states he drank more alcohol than he usually does.? Denies fever, chills, shortness of breath, chest discomfort, changes in urinary habits.? Patient's gallbladder was removed about 20 years ago. In the emergency department imaging revealed mild stranding adjacent to pancreatic head Hospital course: Patient was admitted with abdominal pain and found to have acute pancreatitis likely related to alcohol use, he was also noted to have elevatd BP with no diagnosis of HTN BP was as high as 206/109. For acute pancreatitis treated with Iv, pain meds and diet advanced slowly and presently tolerating regular diet. For HTN--started on Norvasc 5 mg and BP presently 136/90. He had leukocytois likely reactive and resolved. Alcohol cessation has discussed at [facility] and he will work on it. Time Spent with Patient Time attestation: Total time spent providing and/or coordinating discharge services: Discharge coordination time: Greater than 30 minutes Quality: Safe Use of Opioids Does Pt have an Active Cancer Diagnosis on the Problem List?: No Quality: Stroke Does the patient have a stroke diagnosis?: No Physical Exam Vital Signs: Vital Signs: Last Vital Signs Temp 97 F 01/29/22 06:48 Pulse 92 01/29/22 06:48 Resp 18 01/29/22 06:48 BP 136/90 H 01/29/22 06:48 Pulse Ox 95 01/29/22 06:48 O2 Del Method 01/29/22 06:48 BMI result Body Mass Index 29.5 Const: Other: General: AO X 3, no acute distress Resp: CTA bilateral CVS: S1,S2,RRR GI: +BS, NT, no distention Skin: No rash Neuro: motor grossly intact Psych: appropriate affect DS: Data Data Completed and Pending Labs on day of discharge: Laboratory Results - last 24 hr 01/29/22 05:24 WBC 10.3 RBC 5.25 Hgb 16.2 Hct 47.0 MCV 89.5 MCH 30.9 MCHC 34.5 RDW 11.7 Plt Count 176 MPV 11.1 Absolute Nucleated RBC 0.000 Nucleated RBC % (auto) 0.0 Discharge Plan Discharge Anticipated Discharge Date/Time: 01/29/22 11:44 Patient Disposition: Home, Self-Care Discharge Diagnosis: Acute pancreatitis Referrals: Alejo Díaz DO [Primary Care Provider] - 1 Week Discharge Medications: New amlodipine 5 mg Tablet 5 mg PO DAILY Qty: 30 0RF Protocol: Hold for SBP< HOLD for SBP < : 90 Continued thiamine HCl (vitamin B1) [Vitamin B-1] 100 mg tablet 1 tab PO DAILY cholecalciferol (vitamin D3) 50 mcg (2,000 unit) Tablet 50 mcg PO DAILY omeprazole 20 mg Capsule,Delayed Release(Dr/Ec) 20 mg PO DAILY PRN (Reason: Abdominal Pain) Discharge Orders: Discharge Order (Routine); Ordered 01/29/22 Ordered By: Shivam Theodore Diet: Advance to usual diet Activity on Discharge: As tolerated Stand Alone Forms: Patient Portal Discharge page Care Plan Goals: abstinence from alcohol prevent pancreatitis Health Concerns: alcohol use HTN Plan of Treatment: Take Norvasc as directed and follow up with your Doctor for medication adjustment if needed Assessment: as above
--- NOTE | 2022-01-29 13:06 | MHC.CM.PN ---
PT MEDIALLY CLEARED FOR D/C HOME W/PT'S MOTHER FOR TRANSPORT.
== END 2022-01-29 13:01 | disposition home or self-care (01) | DRG 282 ==
LOC: HO.ED 01-28 02:27 → HO.EDOVER 01-28 04:58 → HO.S3 01-28 17:28
PROVIDERS: Emergency Medicine; Admitting Provider Student in an Organized Health Care Education/Training Program; Emergency Provider Internal Medicine; PCP Internal Medicine; Visit Provider Internal Medicine
DX: K85.20 Alcohol induced acute pancreatitis without necrosis or infection (principal); F10.10 Alcohol abuse, uncomplicated; I10 Essential (primary) hypertension; K21.9 Gastro-esophageal reflux disease without esophagitis; Z20.822 Contact with and (suspected) exposure to COVID-19; Z90.49 Acquired absence of other specified parts of digestive tract; Z86.010 Personal history of colon polyps; Z88.0 Allergy status to penicillin; Z79.899 Other long term (current) drug therapy
CPT/HCPCS: 36415; 74177; 80048; 80061; 80076; 81001; 83690; 84484; 85025; 85027; 87635; 93005; 96361; 96374; 96375; 99218; 99285; J1170; J1650; J2270; J2405; J2560; J3411; Q9967

== ENCOUNTER 2022-04-10 07:09 | Outpatient (REF) | payer OTHER, SELFPAY ==
--- NOTE | ~2022-04-10 | XR_ITS ---
EXAMINATION: XR SHOULDER, LEFT CLINICAL INFORMATION: Pain. COMPARISON: None TECHNIQUE: AP external rotation, Grashey, scapular Y, and axillary views of the left shoulder. FINDINGS: The bones and soft tissues are normal. No fracture. Glenohumeral and acromioclavicular alignment is anatomic with normal joint space. No abnormal soft tissue calcifications. XR/XR shoulder LT min 2V IMPRESSION: Unremarkable left shoulder exam.
== END 2022-04-10 07:10 | disposition home or self-care (01) ==
LOC: HO.HOSX 07:09
PROVIDERS: Visit Provider Physician Assistant
DX: M75.82 Other shoulder lesions, left shoulder (principal); M75.22 Bicipital tendinitis, left shoulder
CPT/HCPCS: 20610; 73030; J1040

== ENCOUNTER 2022-12-25 16:03 | Outpatient (REF) | payer OTHER, SELFPAY ==
[2022-12-25 16:15] LABS: MANUAL DIFF FLAG NO
[2022-12-25 16:25] LABS: Basophils Absolute Auto 0.1 X10*3/uL (0.0-0.2); Basophils Percent Auto 0.9 % (0-2); Eosinophils Absolute Auto 0.2 X10*3/uL (0.0-0.4); Eosinophils Percent Auto 2.5 % (0-4); Hematocrit 43.7 % (42.0-52.0); Hemoglobin 15.2 g/dl (14.0-18.0); Imm Gran Abs Auto 0.02 X10*3/uL (0.00-0.03); Imm Gran Pct Auto 0.3 % (0.0-0.4); Lymphocytes Absolute Auto 2.5 X10*3/uL (1.2-4.9); Lymphocytes Percent Auto 32.9 % (20-40); Mean Corpuscular HGB Conc 34.8 g/dl (31.0-36.0); Mean Corpuscular Hemoglobin 31.3 pg (27.0-33.0); Mean Corpuscular Volume 90.1 fL (80.0-98.0); Mean Platelet Volume 10.7 fL (9.4-12.4); Monocytes Absolute Auto 0.8 X10*3/uL (0.1-1.2); Monocytes Percent Auto 10.1 % (2-11); Neutrophils Percent Auto 53.3 % (45-73); Platelet Count 186 X10*3/uL (160-400); Red Blood Count 4.85 X10*6/uL (4.60-5.80); Red Cell Distribution Width 11.9 % (11.0-16.0); White Blood Count 7.5 X10*3/uL (4.8-10.8)
[2022-12-25 16:56] LABS: Alanine Aminotransferase 30 U/L (0-40); Albumin Level 4.1 g/dL (3.5-5.0); Alkaline Phosphatase 117 U/L (39-117); Aspartate Amino Transferase 40 U/L (5-37); Bilirubin Total 1.4 mg/dL (0.0-1.0); Blood Urea Nitrogen 10 mg/dL (9-16); Calcium 9.3 mg/dL (8.4-10.2); Carbon Dioxide 27 mmol/L (22-29); Chloride 105 mmol/L (96-108); Cholesterol 157 mg/dL (<200); Estimated Glomerular Filt Rate > 60; Glucose Fasting 110 mg/dL (60-99); HDL Cholesterol 44 mg/dL (>40); LDL Cholesterol Calculated 75 mg/dL (<100); Lipase 46 U/L (8-78); Sodium 140 mmol/L (135-145); Total Protein 7.4 g/dL (6.5-8.0); Triglycerides 190 mg/dL (<150)
[2022-12-25 16:59] LABS: Amylase 26 U/L (28-100); Anion Gap 13 (12-20)
[2022-12-25 17:15] LABS: Thyroid Stimulating Hormone 3.62 uIU/mL (0.32-4.0); Vitamin D 25-OH Total 52.7 ng/mL (>30)
== END 2022-12-25 16:04 | disposition home or self-care (01) ==
LOC: HO.LAB 16:03
PROVIDERS: PCP Internal Medicine; Visit Provider Internal Medicine
DX: F10.10 Alcohol abuse, uncomplicated (principal); I10 Essential (primary) hypertension; E55.9 Vitamin D deficiency, unspecified
CPT/HCPCS: 36415; 80053; 80061; 82150; 82306; 83690; 84443; 85025

== ENCOUNTER 2023-04-08 15:00 | Outpatient (AMB) | payer OTHER, SELFPAY ==
[2023-04-08 15:05] VITALS: BP 158/87; PULSE 82; BMI 30.7
--- NOTE | 2023-04-08 15:05 | MHC.OFFVIS ---
Intake Vital Signs 04/08/23 15:05 Height 5 ft 10 in Weight 214 lb BMI 30.7 BP 158/87 H Blood Pressure Location Rt brachial Position Standing Pulse 82 Intake Visit Reasons: tubular adenoma Intake Note: This patient presents for a colonoscopy screening. Patient c/o; last colonoscopy 2018, reports no rectal bleeding or pain at this time. Instructional Design Manager Required: No Accompanied by: Self / Same As Patient Allergies penicillin V Allergy (Intermediate, Verified 04/08/23 15:05) hives bee stings Allergy (Severe, Uncoded 04/08/23 15:05) hives, anaphylaxis HPI tubular adenoma HPI Details 57-year-old male history of colon polyps. He has a history of a sessile serrated polyp removed on colonoscopy in 2019. I recommended a shorter interval for his repeat colonoscopy. He currently denies significant complaints. [facility] Medical History Alcohol use Anal pain GERD (gastroesophageal reflux disease) Herniated disc History of adenomatous polyp of colon History of anal fissures Hypertension IBS (irritable bowel syndrome) Laceration of liver, closed Lactose intolerance Surgical History History of cholecystectomy History of hemorrhoidectomy History of lumbar discectomy Social History (Updated 04/10/22 @ 08:27 by GLORIA Gatica) Household Members: Other Household Members Other:: mother Housing: House Do you presently have visiting nurse or other home services: No Alcohol intake: current Alcohol intake frequency: 3 or more drinks per day Patient Tobacco Use Status: Never used Tobacco Substance Use Type: Marijuana service: No Current occupational status: employed 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, 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 Review of Systems Const Denies chills and Denies fever(s) Card Denies chest pain, Denies dyspnea and Denies dyspnea on exertion Resp Denies cough, Denies dyspnea and Denies dyspnea on exertion GI Denies hematochezia and Denies change in bowel habits Denies hematuria and Denies difficulty urinating Musc Denies back pain and Denies limited range of motion Neuro Denies focal weakness and Denies convulsions Psych Denies depression and Denies mood swings Physical Exam Const General: comfortable and no acute distress Orientation/consciousness: patient oriented x3 Neck Neck: Yes no lymphadenopathy Resp Auscultation: clear to auscultation bilaterally Cardio Rhythm: regular rhythm GI Palpation (GI): Soft to palpation, nontender and no guarding Neuro General: patient oriented x3 Assessment & Plan Assessment & Plan (1) History of adenomatous polyp of colon: Code(s): Z86.010 - Personal history of colonic polyps Plan: I had recommended a short interval for his follow-up colonoscopy in view of his sessile serrated polyp in 2019. I reviewed the technique of colonoscopy with him. I discussed the risks including but not limited to bleeding and perforation, as well as the benefits and alternatives. He understands and wants to proceed. Medications: New sodium,potassium,mag sulfates 17.5-3.13-1.6 gram (Suprep Bowel Prep Kit) DILUTE; drink full amount early evening before AND next morning at least 2 hr before procedure; follow w 960 mL water PO 354 mL 0RF Coding Level of Care Code New Pt Level 3 (21012) Diagnoses History of adenomatous polyp of colon Z86.010
== END 2023-04-08 15:19 | disposition home or self-care (01) ==
PROVIDERS: PCP Internal Medicine; Visit Provider Surgery
DX: Z86.010 Personal history of colon polyps (principal)
CPT/HCPCS: 99213

== ENCOUNTER → 2023-04-08 15:00 | Outpatient (BNVA) | payer OTHER, SELFPAY | PROVIDERS: PCP Internal Medicine; Visit Provider Surgery ==

== ENCOUNTER 2023-05-26 11:04 | Outpatient (AMB) | payer OTHER, SELFPAY ==
[2023-05-26 11:16] VITALS: BMI 30.7
--- NOTE | 2023-05-26 11:16 | A.OFFVIS_ITS ---
Intake Vital Signs 05/26/23 11:16 Height 5 ft 10 in Weight 214 lb BMI 30.7 Intake Visit Reasons: new prob- palmar fasciitis of the hands Intake Note: Kenrick 57 yr old male presents today for a new problem for his palmar fasciitis of his left hand small and ring finger. States his finger begin to contract inward about 25 yrs ago after an basketball injury. Reports no pain. Denies numbness, tingling or locking of any finger. Allergies penicillin V Allergy (Intermediate, Verified 05/26/23 11:21) hives bee stings Allergy (Severe, Uncoded 05/26/23 11:21) hives, anaphylaxis HPI new prob- palmar fasciitis of the hands HPI Details Kenrick is a 57 year old left hand dominant man who presents with complaints of left hand contractures. He complains of contractures in his ring & small fingers. He says his small finger contracture has been present for many years, and he believes this began following a Basketball injury when he was ~31 years old. He does say that his contracture has been worsening in his small finger for the last ~10 years. He says his ring finger 1st had a lump in his palm, and this progressed to a contracture over the last 2 years. He would like to discuss treatment options. 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 [facility] Medical History Alcohol use Anal pain GERD (gastroesophageal reflux disease) Herniated disc History of adenomatous polyp of colon History of anal fissures Hypertension IBS (irritable bowel syndrome) Laceration of liver, closed Lactose intolerance Surgical History History of hemorrhoidectomy History of lumbar discectomy History of cholecystectomy Social History Household Members: Other Household Members Other:: mother Housing: House Do you presently have visiting nurse or other home services: No Alcohol intake: current Alcohol intake frequency: 3 or more drinks per day Patient Tobacco Use Status: Never used Tobacco Substance Use Type: Marijuana service: No Current occupational status: employed 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, 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 Review of Systems Const All systems reviewed & are unremarkable except as noted in HPI and below Physical Exam Vital Signs: BMI result Body Mass Index 30.7 Const General: cooperative, healthy appearing and no acute distress Orientation/consciousness: patient oriented x3 HEENT Head: Yes normocephalic and Yes atraumatic Eyes EOM: EOMs intact bilaterally Resp Effort & Inspection: normal respiratory effort and able to speak in complete sentences Cardio Jugular venous distension: no JVD Skin General skin exam: turgor normal Rashes: no rashes Neuro General: patient oriented x3 Extrem Other: Evaluation of right Upper Extremity: The patient is alert, oriented, and in no acute distress Neuro: Median, Ulnar, Radial nerves motor and sensory intact and sensation is normal to the tips of all digits Vascular: Cap refill brisk ROM: He can make a tight fist with good strength He can actively extend all of his digits. He has a right ring finger central Dupuytren's cord for the most part in the palm with a contracture of 30 degrees MCP/0 degrees PIP. He also has a contracture of the right small finger. Some of this was present following his basketball injury, but some of this has gotten quite a bit worse over the last few years and is likely related to a Dupuytren's cord that I appreciated on the radial aspect of the digit extending from about the proximal phalanx level across the PIP and out past the D IP joint. The contracture appears to be 0 degree MCP/45 degree PIP/45 degree DIP. I do not appreciate any ulnar-sided cords involving the small finger. Similarly, I do not appreciate a cord in the palm of the hand that extends to the small finger. Skin: No lacerations or abrasions. General: No Ecchymosis. No Erythema or evidence of infection. Psych Appearance: grossly normal Affect: normal affect Attitude: cooperative Assessment & Plan Assessment & Plan (1) Dupuytren's contracture of right hand: Code(s): M72.0 - Palmar fascial fibromatosis [Dupuytren] Plan Assessment & Plan: 1. Right Ring finger Dupuytrens contrature 30/0 2. Right Small finger Dupuytrens contrature 0/45/45 Of note, he also had a contracture of this digit from a basketball injury over 30 years ago. However, his small finger contracture has gotten noticeably worse in the last few years, and the worsening is most likely secondary to Dupuytren's.. I educated him about this condition I discussed operative and non-operative treatment options The patient would like to proceed with surgery, but he would like to have this done sometime in the summer as he works as [employer] and is busy this time of year The risks and benefits of operative treatment were discussed with the patient and the patient wishes to proceed with surgery. These risks include, but are not limited to risk of damage to blood vessels, nerves, tendons, infection, recurrence, incomplete relief of preoperative symptoms, persistent pain, possible need for further surgery and the risks associated with regional blocks and anesthesia. The plan is to take the patient to the operating room sometime in the next few weeks for the following procedures: 1. Right ring finger partial Dupuytrens fasciectomy, under general 2. Right small finger partial Dupuytrens fasciectomy, under general All of the preoperative paperwork including the consent was reviewed today. All the patient's questions were answered. The patient understands that they will be contacted by our personnel scheduler soon to schedule this procedure He denies Diabetes, blood thinners, asthma, heart, lung, kidney issues Sounds like almost all of his work in maintenance at [employer] is hands on and or dirty. I certainly think it is reasonable for him to take 4 weeks off, and I noted 4-6 weeks is a reasonable range. He is going to look into whether he has some short term disability available. He is also trying to delay into the summer to try to build up some sick leave, and vacation time. At this point he is thinking surgery in the summer, with most of the students being gone, would likely work well. Scribed for Carmen Man MD by Luis Dias, biomedical engineering technician, on 05/26/23 at 11:35 AM, EST. Coding Level of Care Code New Pt Level 4 (03325) Diagnoses Dupuytren's contracture of right hand M72.0
== END 2023-05-26 11:48 | disposition home or self-care (01) ==
PROVIDERS: PCP Internal Medicine; Visit Provider Orthopaedic Surgery
DX: M72.0 Palmar fascial fibromatosis [Dupuytren] (principal)
CPT/HCPCS: 99214

== ENCOUNTER → 2023-05-26 11:04 | Outpatient (BNVA) | payer OTHER, SELFPAY | PROVIDERS: PCP Internal Medicine; Visit Provider Orthopaedic Surgery ==

== ENCOUNTER 2023-05-28 08:18 | Day surgery (SDC) | payer OTHER, SELFPAY ==
[2023-05-26 09:41] VITALS: BMI 30.7
[2023-05-28 08:26] VITALS: BMI 31.6
[2023-05-28] MEDS: Lactated Ringers 1,000 ML 80 ML IVCONT (08:33)
[2023-05-28 08:40] VITALS: BP 139/92; PULSE 97; RESP 18; TEMP 36.7; O2SAT 98
--- NOTE | 2023-05-28 08:56 | MHC.SHP ---
Pre-Procedural Eval Section A - 24 Hr Update-Section A only Date of Service: 05/28/23 Section B - Complete if H&P > 30 days Chief Complaint: Personal history of colonic polyps Details of Present Illness: hx of sessile serrated polyp in 2019 Relevant Social History: None Present Medications: see Short Stay Collaborative assessment Medical History: Significant History (htn, ibs, back pain) Allergies: Allergies Allergy/AdvReac Type Severity Reaction Status Date / Time penicillin V Allergy Intermediate hives Verified 05/28/23 08:27 bee stings Allergy Severe hives, Uncoded 05/28/23 08:27 anaphylaxis Review of Systems Sugical H&P ROS: Negative: Constitution, Cardiovascular, Respiratory, Neurological, Psychiatric, Hem-Onc, Allergic/Immunologic, Gastrointestinal, Genitourinary, Musculoskeletal, Integumentary, Endocrine and Eyes/Ears/Nose/Throat Exam Surgical H&P Exam: Normal: HEENT, Normal: Heart, Normal: Lungs, Normal: Extremities, Normal: Abdomen, Normal: Skin and Normal: Neurological Plan Diagnosis/Plan: Unchanged I have reviewed the history and physical and performed a pertinent physical examination on my patient. No changes have occurred unless specified. Time Spent With Patient Time: Total time managing care of this patient today ____ minutes.
--- NOTE | 2023-05-28 09:06 | P.CONAN_ITS ---
[facility] Active Problems Active Problems: All Active Problems (Updated 05/26/23 @ 11:34 by Luis Dias) Dupuytren's contracture of right hand (Acute) Anal pain (Acute) Herniated disc (Acute) IBS (irritable bowel syndrome) (Acute) Lactose intolerance (Acute) Hypertension (Acute) History of anal fissures (Acute) History of adenomatous polyp of colon (Acute) Past Medical History Medical History GERD (gastroesophageal reflux disease) Alcohol use Laceration of liver, closed Anal pain Herniated disc IBS (irritable bowel syndrome) Lactose intolerance Hypertension History of anal fissures History of adenomatous polyp of colon Family History Family history of problems with anesthesia: No Surgical History Surgical History (Updated 05/28/23 @ 08:27 by Diana Joshi RN) Hx of colonoscopy History of hemorrhoidectomy History of lumbar discectomy History of cholecystectomy History of Problems with Anesthesia: No Social History Social History Household Members: Other Household Members Other:: mother Housing: House Do you presently have visiting nurse or other home services: No Alcohol intake: current Alcohol intake frequency: 3 or more drinks per day Patient Tobacco Use Status: Never used Tobacco Substance Use Type: Marijuana Substance Use Frequency: Occasionally Are you DNR?: No Advance Directives: No Advance Directives Information Provided: Yes Nutrition Risks: No Nutritional Risk service: No Current occupational status: employed 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, 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 Meds Allergies Allergy/AdvReac Type Severity Reaction Status Date / Time penicillin V Allergy Intermediate hives Verified 05/28/23 08:27 bee stings Allergy Severe hives, Uncoded 05/28/23 08:27 anaphylaxis Active Medications: Current Medications Lactated Ringer's (Lr) 1,000 mls @ 80 mls/hr IVCONT .[id number] MILENA Last Admin: 05/28/23 08:33 Dose: 80 mls/hr Home Medications Medication Instructions Recorded Confirmed Last Taken Type cholecalciferol (vitamin D3) 50 50 mcg PO DAILY 01/28/22 05/28/23 Unknown History mcg (2,000 unit) tablet omeprazole 20 mg capsule,delayed 20 mg PO DAILY PRN Abdominal Pain 01/28/22 05/28/23 Unknown History release thiamine HCl (vitamin B1) 100 mg 1 tab PO DAILY 01/28/22 05/28/23 Unknown History tablet (Vitamin B-1) epinephrine 0.3 mg/0.3 mL IM 04/10/22 Unknown History injection, auto-injector Exam Height,Weight and Vital Signs: Height 5 ft 10 in Weight 99.79 kg Last Vital Signs Temp 98.1 F 05/28/23 08:40 Pulse 97 05/28/23 08:40 Resp 18 05/28/23 08:40 BP 139/92 H 05/28/23 08:40 Pulse Ox 98 05/28/23 08:40 O2 Del Method Room Air 05/28/23 08:40 Airway Mallampati Class: III TM Dist: >3cm Neck ROM: Full Assessment and Plan Assessment Anesthesia Assessment: Anesthesia Plan Discussed and Chart Reviewed Final Anesthetic Review Family History of Problems with Anesthesia: No History of Problems with Anesthesia: No NPO: Yes ASA Class: II Final Preanesthetic Review: No Changes in Pt Med Stat, Meds/Allgs Chart Reviewed, Consent Obtained/Reviewed and Anes Risks/Benef Reviewed Patient Risk: Intermediate Procedure Risk: Low Anesthetic Plan Anesthetic Plan: TIVA Disposition: Standard PACU
--- NOTE | 2023-05-28 09:46 | W.PM.OPN ---
Operative Note Operative Note Date of Service: 05/28/23 Narrative: Preop diagnosis: History of flat serrated adenomatous polyp Postop diagnosis: 1. Flat polyp just distal to the hepatic flexure, about 1 cm in diameter Procedure: Colonoscopy with polypectomy using postop with multiple of cold forceps Surgeon: Abebe Hall MD The patient is a 57-year-old male who had a serrated adenomatous polyp in 2019. He is here for follow-up colonoscopy. He understood the technique of the planned procedure as well as the risks, benefits, and alternatives. He was brought to the operating room and placed in left lateral decubitus position under monitored anesthesia care. A surgical time-out was done. A full digital rectal exam was done there were no palpable in canal lesions. The tip of the Olympus colonoscope was introduced through the anal orifice and advanced gently with insufflation all the cecum. The cecum was intubated. The cecum was identified by visualization of the ileocecal valve as well as the appendiceal orifice. The cecal mucosa was unremarkable with the scope was gradually withdrawn with careful examination of the entire colonic mucosa being down the scope withdrawal. The patient had adequate bowel prep so it was unlikely that any lesion may have been missed. At the hepatic flexure on the distal area was note of a flat polyp probably about 1 cm in size. Multiple bites of the cold biopsy forceps were done to excise this. Hemostasis was noted We proceeded to continued to withdraw the scope with careful examination of the entire colonic mucosa. There were no other lesions seen. There were no polyps or abdominal mucosa The rectum was reached. The anal canal was unremarkable. The scope was then withdrawn completely with desufflation The patient tolerated procedure well. There were no immediate complications. He was transferred to the recovery room in stable vital signs. I would probably recommend another colonoscopy in the next 1-2 years depending on the path report.
[2023-05-28 09:49] VITALS: BP 136/87; PULSE 81; RESP 16; TEMP 36.4; O2SAT 97
[2023-05-28 10:04] VITALS: BP 146/96; PULSE 70; RESP 18; TEMP 36.4; O2SAT 97
== END 2023-05-28 10:42 | disposition home or self-care (01) ==
PROVIDERS: PCP Internal Medicine; Visit Provider Surgery
PROC: 0DJD8ZZ Inspection of Lower Intestinal Tract, Via Natural or Artificial Opening Endoscopic (ICD-10-PCS; CPT 45378; principal; 2023-05-28 09:00)
DX: Z12.11 Encounter for screening for malignant neoplasm of colon (principal); D12.3 Benign neoplasm of transverse colon; Z86.010 Personal history of colon polyps; I10 Essential (primary) hypertension
CPT/HCPCS: 45380; 88305; J2704

== ENCOUNTER → 2023-05-28 08:18 | Outpatient (BNV) | payer OTHER, SELFPAY | PROVIDERS: PCP Internal Medicine; Visit Provider Surgery | DX: Z12.11 Encounter for screening for malignant neoplasm of colon (principal); K63.5 Polyp of colon; Z86.010 Personal history of colon polyps | CPT/HCPCS: 45380 ==

== ENCOUNTER 2023-06-10 14:24 | Outpatient (AMB) | payer OTHER, SELFPAY ==
--- NOTE | 2023-06-10 14:34 | MHC.OFFVIS ---
Intake Vital Signs 06/10/23 14:35 Height 5 ft 10 in Weight 220 lb BMI 31.6 BP 157/91 H Blood Pressure Location Lt brachial Position Sitting Pulse 88 Intake Visit Reasons: S/P colonoscopy Intake Note: Patient is seen in office for post op assessment post colonoscopy. Pt c/o:denies any concerns after surgery, here for results Optician Apprentice Dispensing Required: No Accompanied by: Self / Same As Patient Allergies penicillin V Allergy (Intermediate, Verified 06/10/23 14:36) hives bee stings Allergy (Severe, Uncoded 06/10/23 14:36) hives, anaphylaxis Medication List - Last Reconciled 06/10/23 by Abebe Hall MD amlodipine 5 mg See Protocol PO DAILY cholecalciferol (vitamin D3) 50 mcg PO DAILY epinephrine IM omeprazole 20 mg PO DAILY PRN thiamine HCl (vitamin B1) (Vitamin B-1) 1 tab PO DAILY HPI S/P colonoscopy HPI Details He had undergone colonoscopy for history of colon polyps last 05/28/2023. He tolerated the procedure well and denies any significant complaints at this time. FORMERLY [facility], [facility]–1983 Medical History (Updated 06/10/23 @ 14:58 by Abebe Hall MD) Serrated adenoma of colon GERD (gastroesophageal reflux disease) Alcohol use Laceration of liver, closed Anal pain Herniated disc IBS (irritable bowel syndrome) Lactose intolerance Hypertension History of anal fissures History of adenomatous polyp of colon Surgical History Hx of colonoscopy History of hemorrhoidectomy History of lumbar discectomy History of cholecystectomy Social History Household Members: Other Household Members Other:: mother Housing: House Do you presently have visiting nurse or other home services: No Alcohol intake: current Alcohol intake frequency: 3 or more drinks per day Patient Tobacco Use Status: Never used Tobacco Substance Use Type: Marijuana service: No Current occupational status: employed 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, 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 Review of Systems Const Denies chills and Denies fever(s) Card Denies chest pain, Denies dyspnea and Denies dyspnea on exertion Resp Denies cough, Denies dyspnea and Denies dyspnea on exertion GI Denies hematochezia and Denies change in bowel habits Denies hematuria and Denies difficulty urinating Musc Denies back pain and Denies limited range of motion Neuro Denies focal weakness and Denies convulsions Psych Denies depression and Denies mood swings Physical Exam Vital Signs: Last Vital Signs Pulse 88 06/10/23 14:35 BP 157/91 H 06/10/23 14:35 BMI result Body Mass Index 31.6 Const Other: Appears overweight General: comfortable and no acute distress Resp Effort & Inspection: normal respiratory effort Cardio Rate: regular rate GI Palpation (GI): Soft to palpation, not firm and nontender Assessment & Plan Assessment & Plan (1) Serrated adenoma of colon: Code(s): D12.6 - Benign neoplasm of colon, unspecified Plan: Status post colonoscopy. I removed the flat polyp in the area of the hepatic flexure. This was a serrated adenomatous polyp on pathology. There was no dysplasia I recommended a repeat colonoscopy in 1 year in view of the flat nature of the polyp as well as the presence of the serrated adenoma. He understands the plan well. Coding Level of Care Code Est Pt Level 2 (00633) Diagnoses Serrated adenoma of colon D12.6
[2023-06-10 14:35] VITALS: BP 157/91; PULSE 88; BMI 31.6
== END 2023-06-10 15:03 | disposition home or self-care (01) ==
PROVIDERS: PCP Internal Medicine; Visit Provider Surgery
DX: D12.6 Benign neoplasm of colon, unspecified (principal)
CPT/HCPCS: 99212

== ENCOUNTER → 2023-06-10 14:24 | Outpatient (BNVA) | payer OTHER, SELFPAY | PROVIDERS: PCP Internal Medicine; Visit Provider Surgery ==

== ENCOUNTER 2024-01-25 11:28 | Outpatient (AMB) | payer OTHER, SELFPAY ==
[2024-01-25 12:10] VITALS: BMI 31.6
--- NOTE | 2024-01-25 12:10 | MHC.OFFVIS ---
Vital Signs 01/25/24 12:10 Height 5 ft 10 in Weight 220 lb BMI 31.6 Intake Visit Reasons: Preop RT RF/SM dupuytrens 02/03/24 AR Intake Note: Kenrick is a 58 year old left hand dominant male who presents today Pre-Operatively for right right ring finger and right small finger dupuytrens release scheduled for 02/03/[address] Man. Consents signed in office today. Allergies penicillin V Allergy (Intermediate, Verified 01/25/24 12:10) hives bee stings Allergy (Severe, Uncoded 01/25/24 12:10) hives, anaphylaxis HPI HPI Preop RT RF/SM dupuytrens 02/03/24 AR: Details: Kenrick is a 57 year old left hand dominant man who returns to discuss his left Dupuytrens contracture He has Dupuytrens contractures of his left ring & small fingers He says his small finger contracture has been present for many years, and he believes this began following a Basketball injury when he was ~31 years old. He does say that his contracture has been worsening in his small finger for the last ~10 years. He says his ring finger 1st had a lump in his palm, and this progressed to a contracture over the last 2 years. 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 [facility] Medical History (Updated 01/25/24 @ 12:13 by Luis Dias) Serrated adenoma of colon GERD (gastroesophageal reflux disease) Alcohol use Laceration of liver, closed Anal pain Herniated disc IBS (irritable bowel syndrome) Lactose intolerance Hypertension History of anal fissures History of adenomatous polyp of colon Surgical History Hx of colonoscopy History of hemorrhoidectomy History of lumbar discectomy History of cholecystectomy Social History Household Members: Other Household Members Other:: mother Housing: House Do you presently have visiting nurse or other home services: No Alcohol intake: current Alcohol intake frequency: 3 or more drinks per day Patient Tobacco Use Status: Never used Tobacco Substance Use Type: Marijuana service: No Current occupational status: employed 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, 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 Physical Exam Vital Signs: BMI result Body Mass Index 31.6 Const General: cooperative, healthy appearing and no acute distress Orientation/consciousness: patient oriented x3 HEENT Head: Yes normocephalic and Yes atraumatic Eyes EOM: EOMs intact bilaterally Resp Effort & Inspection: normal respiratory effort and able to speak in complete sentences Cardio Jugular venous distension: no JVD Skin General skin exam: turgor normal Rashes: no rashes Neuro General: patient oriented x3 Extrem Other: Evaluation of right Upper Extremity: The patient is alert, oriented, and in no acute distress Neuro: Median, Ulnar, Radial nerves motor and sensory intact and sensation is normal to the tips of all digits Vascular: Cap refill brisk ROM: He can make a tight fist with good strength He can actively extend all of his digits. He has a right ring finger central Dupuytren's cord for the most part in the palm with a contracture of 30 degrees MCP/0 degrees PIP. He also has a contracture of the right small finger. Some of this was present following his basketball injury, but some of this has gotten quite a bit worse over the last few years and is likely related to a Dupuytren's cord that I appreciated on the radial aspect of the digit extending from about the proximal phalanx level across the PIP and out past the DIP joint. The contracture appears to be 0 degree MCP/45 degree PIP/45 degree DIP. I do not appreciate any ulnar-sided cords involving the small finger. Similarly, I do not appreciate a cord in the palm of the hand that extends to the small finger. Psych Appearance: grossly normal Affect: normal affect Attitude: cooperative Assessment & Plan Assessment & Plan (1) Dupuytren's contracture of right hand: Comment: RF & SF Code(s): M72.0 - Palmar fascial fibromatosis [Dupuytren] Category: Medical Plan Assessment & Plan: 1. Right Ring finger Dupuytrens contrature 35/0 2. Right Small finger Dupuytrens contrature 0/45/45 Of note, he also had a contracture of this digit from a basketball injury over 30 years ago. However, his small finger contracture has gotten noticeably worse in the last few years, and the worsening is most likely secondary to Dupuytren's.. I educated him about this condition I discussed operative and non-operative treatment options The patient would like to proceed with surgery, but he would like to have this done sometime in the summer as he works as [employer] and is busy this time of year The risks and benefits of operative treatment were discussed with the patient and the patient wishes to proceed with surgery. These risks include, but are not limited to risk of damage to blood vessels, nerves, tendons, infection, recurrence, incomplete relief of preoperative symptoms, persistent pain, possible need for further surgery and the risks associated with regional blocks and anesthesia. The plan is to take the patient to the operating room sometime on 02/03/24 for the following procedures: 1. Right ring finger partial Dupuytrens fasciectomy, under general 2. Right small finger partial Dupuytrens fasciectomy, under general All of the preoperative paperwork including the consent was reviewed today. All the patient's questions were answered. He denies Diabetes, blood thinners, asthma, heart, lung, kidney issues Sounds like almost all of his work in maintenance at [employer] is hands on and or dirty. I certainly think it is reasonable for him to take 4 weeks off, and I noted 4-6 weeks is a reasonable range to go back to light duty. Full duty likely between 6 and 8 weeks. He is going to look into whether he has some short term disability available. Scribed for Carmen Man MD by Luis Dias, bilingual medical receptionist, on 01/25/24 at 12:15 PM, EST. Coding Level of Care Code Est Pt Level 4 (44842) Diagnoses Dupuytren's contracture of right hand M72.0
== END 2024-01-25 12:50 | disposition home or self-care (01) ==
PROVIDERS: PCP Internal Medicine; Visit Provider Orthopaedic Surgery
DX: M72.0 Palmar fascial fibromatosis [Dupuytren] (principal)
CPT/HCPCS: 99024

== ENCOUNTER → 2024-01-25 11:28 | Outpatient (BNVA) | payer OTHER, SELFPAY | PROVIDERS: PCP Internal Medicine; Visit Provider Orthopaedic Surgery ==

== ENCOUNTER → 2024-02-03 06:02 | Day surgery (SDC) | payer OTHER, SELFPAY ==
[2024-02-01 11:21] VITALS: BMI 31.6
--- NOTE | 2024-02-02 08:55 | P.CONAN_ITS ---
HPI - Anesthesia Eval Consult details Narrative: 58yo M for Right 4th and 5th digit fingers Dupuytrens Contracture Release PMFSH Active Problems Active Problems: All Active Problems Serrated adenoma of colon (Acute) Dupuytren's contracture of right hand (Acute) Anal pain (Acute) Herniated disc (Acute) IBS (irritable bowel syndrome) (Acute) Lactose intolerance (Acute) Hypertension (Acute) History of anal fissures (Acute) History of adenomatous polyp of colon (Acute) Past Medical History Medical History (Updated 01/25/24 @ 12:13 by Luis Dias) Serrated adenoma of colon GERD (gastroesophageal reflux disease) Alcohol use Laceration of liver, closed Anal pain Herniated disc IBS (irritable bowel syndrome) Lactose intolerance Hypertension History of anal fissures History of adenomatous polyp of colon Family History Family history of problems with anesthesia: No Surgical History Surgical History Hx of colonoscopy History of hemorrhoidectomy History of lumbar discectomy History of cholecystectomy History of Problems with Anesthesia: No Social History Social History Household Members: Other Household Members Other:: mother Housing: House Do you presently have visiting nurse or other home services: No Alcohol intake: current Alcohol intake frequency: 3 or more drinks per day Patient Tobacco Use Status: Never used Tobacco Substance Use Type: Marijuana service: No Current occupational status: employed 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, 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 Meds Allergies Allergy/AdvReac Type Severity Reaction Status Date / Time penicillin V Allergy Intermediate hives Verified 01/25/24 12:10 bee stings Allergy Severe hives, Uncoded 01/25/24 12:10 anaphylaxis Home Medications ?Medication ?Instructions ?Recorded ?Confirmed ?Last Taken ?Type cholecalciferol (vitamin D3) 50 50 mcg PO DAILY 01/28/22 06/10/23 Unknown History mcg (2,000 unit) tablet omeprazole 20 mg capsule,delayed 20 mg PO DAILY PRN Abdominal Pain 01/28/22 06/10/23 Unknown History release thiamine HCl (vitamin B1) 100 mg 1 tab PO DAILY 01/28/22 06/10/23 Unknown History tablet (Vitamin B-1) epinephrine 0.3 mg/0.3 mL IM 04/10/22 06/10/23 Unknown History injection, auto-injector Exam Height,Weight and Vital Signs: Height 5 ft 10 in Weight 99.79 kg Assessment and Plan Assessment Anesthesia Assessment: Chart Reviewed Final Anesthetic Review Family History of Problems with Anesthesia: No History of Problems with Anesthesia: No
--- NOTE | 2024-02-03 06:19 | PC.NURSE ---
Patient arrived and stated he works third shift and ate a sandwich prior to arriving. Dr. Pineda updated and patient is cancelled. Patient stated he will call office and reschedule. Patient stated that he did not listen to our message to remain NPO until he arrived in our waiting room.
== END ==
LOC: HO.SSS 06:02
PROVIDERS: PCP Internal Medicine; Visit Provider Orthopaedic Surgery
DX: M72.0 Palmar fascial fibromatosis [Dupuytren] (principal); Z53.8 Procedure and treatment not carried out for other reasons

== ENCOUNTER 2024-02-24 07:53 | Emergency (ER) | payer OTHER, SELFPAY ==
--- NOTE | ~2024-02-24 | XR_ITS ---
EXAMINATION: XR FINGER, LEFT CLINICAL INFORMATION: Index finger laceration COMPARISON: None available. TECHNIQUE: Three views of the left index finger. FINDINGS: The bones and soft tissues are unremarkable. No fracture. Alignment is anatomic. Joint spaces are maintained. No radiopaque foreign body seen. XR/XR finger LT min 2V IMPRESSION: Normal finger radiographs. Electronically signed by: Jordon Hong MD 02/24/2024 09:41 AM EST
[2024-02-24 07:57] VITALS: BP 147/78; PULSE 109; RESP 20; TEMP 37; O2SAT 97; BMI 29.4
--- NOTE | 2024-02-24 09:07 | ED.SKABFB ---
HPI - Skin/Abscess/Foreign Bdy General Chief complaint: Skin/Abscess/Foreign Body Stated complaint: l finger lac Time Seen by Provider: 02/24/24 09:04 Source: patient, RN notes reviewed and old records reviewed Mode of arrival: ambulatory History of Present Illness ED Provider: Adina Steele PA-C HPI narrative: 58-year-old male with a past medical history IBS, HTN, presenting to the ED complaining of left index finger laceration s/p cutting on sharp blade last night around 22:00. Tetanus up-to-date. States blade was clean. Denies anticoagulation use. Denies numbness, tingling, weakness. Related Data Home Medications ?Medication ?Instructions ?Recorded ?Confirmed cholecalciferol (vitamin D3) 50 50 mcg PO DAILY 01/28/22 06/10/23 mcg (2,000 unit) tablet omeprazole 20 mg capsule,delayed 20 mg PO DAILY PRN Abdominal Pain 01/28/22 06/10/23 release thiamine HCl (vitamin B1) 100 mg 1 tab PO DAILY 01/28/22 06/10/23 tablet (Vitamin B-1) epinephrine 0.3 mg/0.3 mL IM 04/10/22 06/10/23 injection, auto-injector Previous Rx's ?Medication ?Instructions ?Recorded amlodipine 5 mg tablet 5 mg PO DAILY #30 tabs 01/29/22 Allergies Allergy/AdvReac Type Severity Reaction Status Date / Time penicillin V Allergy Intermediate hives Verified 02/24/24 07:58 bee stings Allergy Severe hives, Uncoded 02/24/24 07:58 anaphylaxis Review of Systems Review of Systems: Yes all other systems are reviewed and are negative Constitutional: Constitutional: Reports as per [facility] Past Medical History Attestation statement: The following information was validated with the patient. Source: old records reviewed Medical History Serrated adenoma of colon GERD (gastroesophageal reflux disease) Alcohol use Laceration of liver, closed Anal pain Herniated disc IBS (irritable bowel syndrome) Lactose intolerance Hypertension History of anal fissures History of adenomatous polyp of colon Surgical History Hx of colonoscopy History of hemorrhoidectomy History of lumbar discectomy History of cholecystectomy Social History Social History Household Members: Other Household Members Other:: mother Housing: House Do you presently have visiting nurse or other home services: No Alcohol intake: current Alcohol intake frequency: 3 or more drinks per day Patient Tobacco Use Status: Never used Tobacco Substance Use Type: Marijuana Advance Directives: No Advance Directives Information Provided: Yes service: No Current occupational status: employed 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, 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 Physical Exam Vital Signs: Vital Signs: Last Vital Signs Temp 98.6 F 02/24/24 07:57 Pulse 109 H 02/24/24 07:57 Resp 20 02/24/24 07:57 BP 147/78 H 02/24/24 07:57 Pulse Ox 97 02/24/24 07:57 O2 Del Method Room Air 02/24/24 07:57 BMI result Body Mass Index 29.4 Const: General: cooperative, healthy appearing and no acute distress Orientation/consciousness: patient oriented x3 Limitations: no limitations HEENT: Head: Yes normal to inspection and Yes atraumatic Ears: hearing grossly normal bilaterally General nose exam: Normal external nose present Face and sinus: Yes normal facial exam Eyes: General: appearance normal, both eyes and all related structures EOM: EOMs intact bilaterally Neck: Neck: Yes normal visual inspection and Yes no meningeal signs Resp: Effort & Inspection: normal respiratory effort and no respiratory distress Cardio: Rate: regular rate Skin: Other: +1.5 cm linear laceration noted to left 2nd digit PIP. Underlying structures appear intact. Full range of motion intact. Neurovascularly intact, sensation intact to light touch. Rashes: no rashes Neuro: General: patient oriented x3, tone normal and no meningeal signs Cranial nerves: Yes CN's II-XII intact bilaterally Gait exam (Neuro): Normal gait present Extrem: General: Yes normal to inspection Medical Decision Making Medical Decision Making MDM Narrative: 58-year-old male with a past medical history IBS, HTN, presenting to the ED complaining of left index finger laceration s/p cutting on sharp blade last night around 22:00. On exam mildly tachycardic likely from pain, NAD, nontoxic appearing, physical exam as noted above. Wound needing suture repair. Low suspicion for tendon/ligamental injury or fracture. No evidence of foreign body Plan: Wound repair Please refer to course for remaining clinical decision making, interpretation of labs/imaging results, and discussions with consultants and/or family members. Differential Diagnosis Differential Diagnoses: The differential diagnosis associated with the presentation includes As above External Record Review External record reviewed: Inpatient record, Office record, Outpatient record, Prior outpatient labs, Prior outpatient radiology, Primary care record and Outside ED record Tests considered The following testing was considered but not selected: As above Prescription Management I considered prescription management with: Pain Medication and Antibiotic Chronic Conditions Patient?s care impacted by: Hypertension Procedures Laceration Laceration 1: Site: hand Side (If applicable): left Size (cm): 1.5 Description: linear Depth: simple, single layer Local Anesthetic: lidocaine 1% Amount of anesthesia used (mL): 2 Pre-repair: wound explored and irrigated extensively Skin layer closed with: nylon Size (cm): 5-0 Number of sutures: 4 Technique: simple, interrupted Discharge Plan Discharge Clinical Impression: Finger laceration Patient Disposition: Home, Self-Care Instructions: Finger Laceration (ED) Additional Instructions: Your wounds were repaired today in the emergency department. Keep dry and clean. You need to return to any emergency department, urgent care, or your PCPs office in 7-10 days for suture removal Apply bacitracin and or Neosporin daily Once sutures are removed apply anti scar cream like Mederma If area begins look infected, is red, there is drainage, streaking, or you have fever please return to the emergency department Prescriptions: No Action thiamine HCl (vitamin B1) [Vitamin B-1] 100 mg tablet 1 tab PO DAILY cholecalciferol (vitamin D3) 50 mcg (2,000 unit) Tablet 50 mcg PO DAILY omeprazole 20 mg Capsule,Delayed Release(Dr/Ec) 20 mg PO DAILY PRN (Reason: Abdominal Pain) amlodipine 5 mg Tablet 5 mg PO DAILY Qty: 30 0RF Protocol: Hold for SBP< HOLD for SBP < : 90 epinephrine 0.3 mg/0.3 mL auto-injector IM Referrals: Alejo Díaz DO [Primary Care Provider] - 1 week (suture removal) Stand Alone Forms: Work/School Release Print Language: Polish
[2024-02-24 09:49] VITALS: BP 143/103; PULSE 100; RESP 16; TEMP 36.2; O2SAT 97
[2024-02-24] MEDS: Lidocaine HCl 1 % MPF 5 ML VIAL INFILTRATI (09:50)
== END 2024-02-24 09:54 | disposition home or self-care (01) ==
PROVIDERS: Emergency Provider Emergency Medicine; PCP Internal Medicine
DX: S61.412A Laceration without foreign body of left hand, initial encounter (principal); M79.642 Pain in left hand; W26.8XXA Contact with other sharp object(s), not elsewhere classified, initial encounter; Y93.89 Activity, other specified; Y92.89 Other specified places as the place of occurrence of the external cause; Y99.8 Other external cause status
CPT/HCPCS: 12001; 73140; 99282; 99284; J2003

== ENCOUNTER 2024-04-18 09:02 | Outpatient (AMB) | payer OTHER, SELFPAY ==
[2024-04-18 09:04] VITALS: BMI 29.4
--- NOTE | 2024-04-18 09:04 | MHC.OFFVIS ---
Vital Signs 04/18/24 09:04 Height 5 ft 10 in Weight 205 lb BMI 29.4 Intake Visit Reasons: Preop RT RF/SM dupuytrens 04/27/24 AR Intake Note: Kenrick 58 year old right hand dominant male presents today for his pre operative visit for his right ring finger and small finger dupuytrens contracture repair that is schedule for 04/27/[address] Man. Patient signed consent and all questions and concerns have been answered. Allergies penicillin V Allergy (Intermediate, Verified 04/18/24 09:11) hives bee stings Allergy (Severe, Uncoded 04/18/24 09:11) hives, anaphylaxis HPI HPI Preop RT RF/SM dupuytrens 04/27/24 AR: Details: Kenrick 58 year old right hand dominant male presents today for his pre operative visit for his right ring finger and small finger dupuytrens contracture repair that is schedule for 04/27/[address] Man. Patient signed consent and all questions and concerns have been answered. [facility] Medical History Serrated adenoma of colon GERD (gastroesophageal reflux disease) Alcohol use Laceration of liver, closed Anal pain Herniated disc IBS (irritable bowel syndrome) Lactose intolerance Hypertension History of anal fissures History of adenomatous polyp of colon Surgical History Hx of colonoscopy History of hemorrhoidectomy History of lumbar discectomy History of cholecystectomy Social History Household Members: Other Household Members Other:: mother Housing: House Do you presently have visiting nurse or other home services: No Alcohol intake: current Alcohol intake frequency: 3 or more drinks per day Patient Tobacco Use Status: Never used Tobacco Substance Use Type: Marijuana service: No Current occupational status: employed 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, 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 Review of Systems Const All systems reviewed & are unremarkable except as noted in HPI and below Physical Exam Vital Signs: BMI result Body Mass Index 29.4 Const General: cooperative, healthy appearing and no acute distress Orientation/consciousness: patient oriented x3 HEENT Head: Yes normocephalic and Yes atraumatic Eyes EOM: EOMs intact bilaterally Resp Effort & Inspection: normal respiratory effort and able to speak in complete sentences Cardio Jugular venous distension: no JVD Skin General skin exam: turgor normal Rashes: no rashes Neuro General: patient oriented x3 Extrem Other: Evaluation of right Upper Extremity: The patient is alert, oriented, and in no acute distress Neuro: Median, Ulnar, Radial nerves motor and sensory intact and sensation is normal to the tips of all digits Vascular: Cap refill brisk ROM: He can make a tight fist with good strength He can actively extend all of his digits. He has a right ring finger central Dupuytren's cord for the most part in the palm with a contracture of 30 degrees MCP/0 degrees PIP. He also has a contracture of the right small finger. Some of this was present following his basketball injury, but some of this has gotten quite a bit worse over the last few years and is likely related to a Dupuytren's cord that I appreciated on the radial aspect of the digit extending from about the proximal phalanx level across the PIP and out past the DIP joint. The contracture appears to be 0 degree MCP/45 degree PIP/45 degree DIP. I do not appreciate any ulnar-sided cords involving the small finger. Similarly, I do not appreciate a cord in the palm of the hand that extends to the small finger. Psych Appearance: grossly normal Affect: normal affect Attitude: cooperative Assessment & Plan Assessment & Plan (1) Dupuytren's contracture of right hand: Comment: RF & SF Code(s): M72.0 - Palmar fascial fibromatosis [Dupuytren] Category: Medical Plan Assessment & Plan: 1. Right Ring finger Dupuytrens contrature 35/0 2. Right Small finger Dupuytrens contrature 0/45/45 Of note, he also had a contracture of this digit from a basketball injury over 30 years ago. However, his small finger contracture has gotten noticeably worse in the last few years, and the worsening is most likely secondary to Dupuytren's.. I educated him about this condition I discussed operative and non-operative treatment options The patient would like to proceed with surgery, but he would like to have this done sometime in the summer as he works as [employer] and is busy this time of year The risks and benefits of operative treatment were discussed with the patient and the patient wishes to proceed with surgery. These risks include, but are not limited to risk of damage to blood vessels, nerves, tendons, infection, recurrence, incomplete relief of preoperative symptoms, persistent pain, possible need for further surgery and the risks associated with regional blocks and anesthesia. The plan is to take the patient to the operating room sometime on 04/27/24 for the following procedures: 1. Right ring finger partial Dupuytrens fasciectomy, under general 2. Right small finger partial Dupuytrens fasciectomy, under general All of the preoperative paperwork including the consent was reviewed today. All the patient's questions were answered. 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 I certainly think it is reasonable for him to take 4 weeks off, and I noted 4-6 weeks is a reasonable range to go back to light duty. Full duty likely between 6 and 8 weeks. He is going to look into whether he has some short term disability available. Coding Level of Care Code Est Pt Level 4 (77288) Diagnoses Dupuytren's contracture of right hand M72.0
== END 2024-04-18 09:41 | disposition home or self-care (01) ==
PROVIDERS: PCP Internal Medicine
DX: M72.0 Palmar fascial fibromatosis [Dupuytren] (principal)
CPT/HCPCS: 99214

== ENCOUNTER → 2024-04-18 09:02 | Outpatient (BNVA) | payer OTHER, SELFPAY | PROVIDERS: PCP Internal Medicine ==

== ENCOUNTER 2024-04-27 06:04 | Day surgery (SDC) | payer OTHER, SELFPAY ==
[2024-04-25 09:47] VITALS: BMI 29.4
[2024-04-27 06:14] VITALS: BMI 30.1
[2024-04-27] MEDS: Lactated Ringers 1,000 ML 100 ML IVCONT (06:21)
--- NOTE | 2024-04-27 07:20 | HO.ANESPROP2 ---
Documented by User: Salena Butterfield NP 04/25/24 12:42 HPI - Anesthesia Eval Consult details Narrative: 58yo M for Right 4th and 5th finger Dupuytrens Contracture Release ETOH daily: >3 PMFSH Active Problems Active Problems: All Active Problems Serrated adenoma of colon (Acute) Dupuytren's contracture of right hand (Acute) Anal pain (Acute) Herniated disc (Acute) IBS (irritable bowel syndrome) (Acute) Lactose intolerance (Acute) Hypertension (Acute) History of anal fissures (Acute) History of adenomatous polyp of colon (Acute) Past Medical History Medical History Serrated adenoma of colon GERD (gastroesophageal reflux disease) Alcohol use Laceration of liver, closed Anal pain Herniated disc IBS (irritable bowel syndrome) Lactose intolerance Hypertension History of anal fissures History of adenomatous polyp of colon Family History Family history of problems with anesthesia: No Surgical History Surgical History Hx of colonoscopy History of hemorrhoidectomy History of lumbar discectomy History of cholecystectomy History of Problems with Anesthesia: No Social History Social History Household Members: Other Household Members Other:: mother Housing: House Are you a primary youth career specialist to a significant other at home: No Do you presently have visiting nurse or other home services: No Alcohol intake: current Alcohol intake frequency: 3 or more drinks per day Patient Tobacco Use Status: Never used Tobacco Substance Use Type: Marijuana Substance Use Frequency: Daily Have you been hit, kicked, punched, or otherwise hurt by someone within the past year? 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 Allergies Allergy/AdvReac Type Severity Reaction Status Date / Time penicillin V Allergy Intermediate hives Verified 04/27/24 06:32 bee stings Allergy Severe hives, Uncoded 04/27/24 06:32 anaphylaxis Home Medications ?Medication ?Instructions ?Recorded ?Confirmed ?Last Taken ?Type cholecalciferol (vitamin D3) 50 50 mcg PO DAILY 01/28/22 04/27/24 Unknown History mcg (2,000 unit) tablet omeprazole 20 mg capsule,delayed 20 mg PO DAILY PRN Abdominal Pain 01/28/22 04/27/24 Unknown History release thiamine HCl (vitamin B1) 100 mg 1 tab PO DAILY 01/28/22 04/27/24 Unknown History tablet (Vitamin B-1) epinephrine 0.3 mg/0.3 mL IM 04/10/22 06/10/23 Unknown History injection, auto-injector Exam Height,Weight and Vital Signs: Height 5 ft 10 in Weight 92.986 kg Assessment and Plan Assessment Anesthesia Assessment: Chart Reviewed Final Anesthetic Review Family History of Problems with Anesthesia: No History of Problems with Anesthesia: No Documented by User: Connie Ordaz DO 04/27/24 08:18 [facility] Past Medical History Medical History Serrated adenoma of colon GERD (gastroesophageal reflux disease) Alcohol use Laceration of liver, closed Anal pain Herniated disc IBS (irritable bowel syndrome) Lactose intolerance Hypertension History of anal fissures History of adenomatous polyp of colon Family History Family history of problems with anesthesia: No Surgical History Surgical History Hx of colonoscopy History of hemorrhoidectomy History of lumbar discectomy History of cholecystectomy History of Problems with Anesthesia: No Social History Social History Household Members: Other Household Members Other:: mother Housing: House Are you a primary youth career specialist to a significant other at home: No Do you presently have visiting nurse or other home services: No Alcohol intake: current Alcohol intake frequency: 3 or more drinks per day Patient Tobacco Use Status: Never used Tobacco Substance Use Type: Marijuana Substance Use Frequency: Daily Have you been hit, kicked, punched, or otherwise hurt by someone within the past year? 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 Allergies Allergy/AdvReac Type Severity Reaction Status Date / Time penicillin V Allergy Intermediate hives Verified 04/27/24 06:32 bee stings Allergy Severe hives, Uncoded 04/27/24 06:32 anaphylaxis Home Medications ?Medication ?Instructions ?Recorded ?Confirmed ?Last Taken ?Type cholecalciferol (vitamin D3) 50 50 mcg PO DAILY 01/28/22 04/27/24 Unknown History mcg (2,000 unit) tablet omeprazole 20 mg capsule,delayed 20 mg PO DAILY PRN Abdominal Pain 01/28/22 04/27/24 Unknown History release thiamine HCl (vitamin B1) 100 mg 1 tab PO DAILY 01/28/22 04/27/24 Unknown History tablet (Vitamin B-1) epinephrine 0.3 mg/0.3 mL IM 04/10/22 06/10/23 Unknown History injection, auto-injector Exam Exam Date and Time: 04/27/24 0720 Airway Mallampati Class: II TM Dist: <=3cm Neck ROM: Full Loose/Missing/Broken Teeth: No (patient denies any loose or broken teeth) Heart: S1S2 Lungs: CTAB Assessment and Plan Assessment Anesthesia Assessment: Anesthesia Plan Discussed and Chart Reviewed Final Anesthetic Review Family History of Problems with Anesthesia: No History of Problems with Anesthesia: No NPO: Yes ASA Class: II Final Preanesthetic Review: No Changes in Pt Med Stat, Meds/Allgs Chart Reviewed, Consent Obtained/Reviewed and Anes Risks/Benef Reviewed Patient Risk: Low Procedure Risk: Low Anesthetic Plan Anesthetic Plan: GA, Regional Block (right brachial plexus block) and Agree w/ Assess. and Plan Disposition: Standard PACU
--- NOTE | 2024-04-27 07:23 | PC.NURSE ---
Dr. Ordaz aware that patient stated has had cough with clear sputum x 1 week and only needed OTC treatments. denies fever and/or any other symptoms. VS WNl. LCTA. Ok to proceed per Dr. Ordaz.
--- NOTE | 2024-04-27 07:37 | PC.NURSE ---
dr. davis reviewed allergies and reactions. okay to proceed with cefazolin.
--- NOTE | 2024-04-27 07:46 | P.OP_ITS ---
Operative Note Operative Note Date of Service: 04/27/24 Narrative: Preop diagnosis: 1. Right small finger Dupuytren's contracture involving the PIP and D IP joints 2. Right ring finger Dupuytren's contracture involving the MCP joint Postop diagnosis: Same Procedure: 1. Right small finger Partial Dupuytren's fasciectomy 2. Right ring finger partial Dupuytren's fasciectomy in the palm 3. Right small finger radial Digital nerve neurolysis Surgeon: Carmen Man MD Glass Processing Worker: Jose CAUSEY Anesthesia: General anesthesia plus regional block Findings: A cord was noted to pass from the radial aspect of the small finger proximal phalanx across the PIP joint, volar and radial to the D IP joint. Full extension was obtained at the MCP/PIP/D IP joints after excision of this cord. A central cord with a significant Dupuytren's nodule at the mid palmar crease was noted extending from the palm to the right ring finger proximal phalanx. Full extension of the MCP joint was obtained after excision of this cord and nodule. Implants: None Tourniquet time: 51 minutes EBL: 5.0 ml Specimen: Dupuytren's cords from the small finger, and from the ring finger in the palm Drains: None Complications: None Disposition: Brought to the recovery room in stable condition Plan: Follow-up in 10-14 days for wound check, suture removal and to check pathology OT appt on day of f/u to make a custom night spint and to begin OT. This night splint really only needs to be for the small finger PIP and D IP joints. Indications: The patient is 58 years old with right small finger and right ring finger Dupuytren's contractures . The risks and benefits of operative treatment, including but not limited to risk of damage to blood vessels, nerves, tendons, infection, recurrence, persistent pain or numbness, incomplete resolution of preoperative symptoms, or need for further surgery were discussed with the patient and they wished to proceed with surgery. Procedure: Once consent was obtained patient was brought back to the operating suite and placed in the operating table in a supine position. A regional block was performed by the anesthesia team. Perioperative antibiotics and anesthesia was administered by the anesthesia team. A tourniquet was applied to the proximal aspect of the right upper extremity and the limb was prepped and draped in a standard surgical fashion. The limb was elevated exsanguinated with Esmarch bandage and the tourniquet inflated to 250 mm of mercury for a total tourniquet time of 51 minutes. I made a Vikki type incision extending along the Dupuytren's cord from the palmar digital crease to the pad of the right small finger. The incision was made with a 15. Blade through the skin the subcutaneous tissues. I then carefully dissected down to the level of the Dupuytren's cord. This was done using tenotomy and iris scissors. A neurolysis of the radial digital nerve and vessel was performed mobilizing it centrally, away from the Dupuytren's cord. Care was taken to protect the nearby neurovascular structures. The Dupuytren's cord was cut at its proximal aspect using iris scissors. The Dupuytren's cord was then carefully dissected free in a proximal to distal direction using iris scissors and a Baca blade and again taking care to protect the nearby neurovascular structures. The cord was then detached distally in the radial pad of the small finger. At this point we were able to obtain full passive extension of the small finger at the MCP/PIP/D IP joints. The small finger cord was placed on the back table to be sent for histopathology My Attention was then turned to the right ring finger. A Vikki is a incision was then made over the volar aspect right ring finger Dupuytren's cord extending from the mid palmar area to just proximal to the palmar digital crease. Incis ion was made through the skin the subcutaneous tissues. I then carefully dissected down to the level of the ring finger Dupuytren's cord and nodule in the palm. The soft tissue was mobilized from about the Dupuytren's cord with care being taken to protect the neurovascular structures. The cord was then transected proximally in the palm using a 15. Blade. A Awais was then used to apply traction through the cord and then the cord was dissected in a proximal to distal direction freeing it up from the surrounding soft tissues. Care was taken to protect the neurovascular structures during this dissection. The cord was then transected distally at about the A1 geraldo area and the ring finger cord was placed on the back table to be sent for histopathology. We were then able to fully extend the right ring finger at the MCP joint. At this point the tourniquet was deflated and hemostasis obtained with a brief period of local pressure The wounds were copiously irrigated with normal bimal ine. skin edges were reapproximated with 5-0 Prolene suture. The wound was infiltrated with some 0.25% plain Marcaine for postop pain control and a sterile dressing and volar splint holding the small finger in extension was applied. The patient appears to have tolerated the procedure well and with no complications. All digits were well vascularized conclusion of the case.
--- NOTE | 2024-04-27 07:46 | MHC.SHP ---
Pre-Procedural Eval Section A - 24 Hr Update-Section A only Date of Service: 04/27/24 The patient is an INPATIENT: No Changes since office visit: No Cold of Flu in the past 2 weeks, No New Medical Problems, No Changes in Medication and No Patient answered all questions The patient has been examined within 24 hours of the surgical procedure. The History & Physical has been completed within 30 days and I have reviewed it.: Yes Section B - Complete if H&P > 30 days Chief Complaint: Palmar fascial fibromatosis [Dupuytren] Allergies: Allergies Allergy/AdvReac Type Severity Reaction Status Date / Time penicillin V Allergy Intermediate hives Verified 04/27/24 06:32 bee stings Allergy Severe hives, Uncoded 04/27/24 06:32 anaphylaxis Plan Diagnosis/Plan: Unchanged I have reviewed the history and physical and performed a pertinent physical examination on my patient. No changes have occurred unless specified. Time Spent With Patient Time: Total time managing care of this patient today ____ minutes.
[2024-04-27 09:40] VITALS: BP 153/101; PULSE 84; RESP 16; TEMP 36.6; O2SAT 100
[2024-04-27 09:45] VITALS: BP 148/99; PULSE 84; RESP 16; TEMP 36.6; O2SAT 100
[2024-04-27 09:50] VITALS: BP 163/103; PULSE 89; RESP 17; O2SAT 92
[2024-04-27 09:55] VITALS: BP 149/98; PULSE 90; RESP 17; O2SAT 94
[2024-04-27 10:00] VITALS: BP 159/103; PULSE 81; RESP 17; O2SAT 95
[2024-04-27 10:16] VITALS: BP 151/108; PULSE 83; RESP 18; TEMP 36.1; O2SAT 95
== END 2024-04-27 11:18 | disposition home or self-care (01) ==
PROVIDERS: PCP Internal Medicine; Visit Provider Orthopaedic Surgery
PROC: (CPT 26045; principal; 2024-04-27 07:30)
DX: M72.0 Palmar fascial fibromatosis [Dupuytren] (principal); I10 Essential (primary) hypertension; F10.90 Alcohol use, unspecified, uncomplicated; E73.9 Lactose intolerance, unspecified; Z88.0 Allergy status to penicillin; Z98.890 Other specified postprocedural states
CPT/HCPCS: 26123; 26125; 64702; 88304; J0131; J0665; J0690; J1100; J1885; J2003; J2004; J2250; J2405; J2704; J3010

== ENCOUNTER → 2024-04-27 06:04 | Outpatient (BNV) | payer OTHER, SELFPAY | PROVIDERS: PCP Internal Medicine; Visit Provider Orthopaedic Surgery | DX: M72.0 Palmar fascial fibromatosis [Dupuytren] (principal) | CPT/HCPCS: 26123; 64702 ==

== ENCOUNTER 2024-05-03 15:49 | Outpatient (AMB) | payer OTHER, SELFPAY ==
--- NOTE | 2024-05-03 15:57 | A.OFFVIS_ITS ---
Vital Signs 05/03/24 16:04 Height 5 ft 10 in Weight 221 lb 6 oz BMI 31.8 Intake Visit Reasons: Colonoscopy follow up for 1 year colonoscopy Intake Note: This patient presents for one year recall colonoscopy. Pt c/o; no concerns. Cyber Security Systems Engineer Required: No Accompanied by: Self / Same As Patient Allergies penicillin V Allergy (Intermediate, Verified 05/03/24 16:04) hives bee stings Allergy (Severe, Uncoded 05/03/24 16:04) hives, anaphylaxis Medication List - Last Reconciled 05/03/24 by Abebe Hall MD amlodipine 5 mg See Protocol PO DAILY cholecalciferol (vitamin D3) 50 mcg PO DAILY epinephrine IM omeprazole 20 mg PO DAILY PRN oxycodone-acetaminophen 5-325 mg 1 tab PO Q6H PRN thiamine HCl (vitamin B1) (Vitamin B-1) 1 tab PO DAILY HPI HPI Colonoscopy follow up for 1 year colonoscopy: Details: 58-year-old male here for a follow-up colonoscopy. I had done his colonoscopy a year ago. This showed a flat polyp in the area of the hepatic flexure. This was removed. The path report had shown a serrated adenoma. I had therefore recommended follow-up colonoscopy within 1 year because of the flat nature of the polyp as well as because of the serrated adenoma on pathology He denies any GI complaints. He denies any family history of colon cancer. He does state that he had surgery for his right 5th finger a week ago. He is being followed by the hand surgeon for this. COUNTS INCLUDE 234 BEDS AT THE [facility] Medical History Serrated adenoma of colon GERD (gastroesophageal reflux disease) Alcohol use Laceration of liver, closed Anal pain Herniated disc IBS (irritable bowel syndrome) Lactose intolerance Hypertension History of anal fissures History of adenomatous polyp of colon Surgical History Hx of colonoscopy History of hemorrhoidectomy History of lumbar discectomy History of cholecystectomy Social History Household Members: Other Household Members Other:: mother Housing: House Are you a primary career and transition teacher to a significant other at home: No Do you presently have visiting nurse or other home services: No Alcohol intake: current Alcohol intake frequency: 3 or more drinks per day Patient Tobacco Use Status: Never used Tobacco Substance Use Type: Marijuana service: No Current occupational status: employed 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, 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 Review of Systems Const Denies chills and Denies fever(s) Card Denies chest pain, Denies dyspnea and Denies dyspnea on exertion Resp Denies cough, Denies dyspnea and Denies dyspnea on exertion GI Denies hematochezia and Denies change in bowel habits Denies hematuria and Denies difficulty urinating Musc Denies back pain and Denies limited range of motion Neuro Denies focal weakness and Denies convulsions Psych Denies depression and Denies mood swings Physical Exam Const General: comfortable and no acute distress Orientation/consciousness: patient oriented x3 Neck Neck: Yes no lymphadenopathy Resp Auscultation: clear to auscultation bilaterally Cardio Rhythm: regular rhythm GI Palpation (GI): Soft to palpation, nontender and no guarding Neuro General: patient oriented x3 Assessment & Plan Assessment & Plan (1) History of adenomatous polyp of colon: Code(s): Z86.010 - Personal history of colon polyps Category: Medical Plan: He had a flat adenomatous polyp, serrated in pathology removed last year from the hepatic flexure. I had recommended repeating the colonoscopy within 1 year I reviewed with him the technique of the procedure. I explained the risks including but not limited to bleeding and perforation, as well as the benefits and alternatives. He understands and wants to proceed. Coding Level of Care Code Est Pt Level 3 (16499) Diagnoses History of adenomatous polyp of colon Z86.010
[2024-05-03 16:04] VITALS: BMI 31.8
== END 2024-05-03 16:09 | disposition home or self-care (01) ==
PROVIDERS: PCP Internal Medicine; Visit Provider Surgery
DX: Z86.0100 Personal history of colon polyps, unspecified (principal)
CPT/HCPCS: 99213

== ENCOUNTER → 2024-05-03 15:49 | Outpatient (BNVA) | payer OTHER, SELFPAY | PROVIDERS: PCP Internal Medicine; Visit Provider Surgery ==

== ENCOUNTER 2024-05-09 11:06 | Outpatient (AMB) | payer OTHER, SELFPAY ==
[2024-05-09 11:11] VITALS: BMI 31.7
--- NOTE | 2024-05-09 11:11 | MHC.OFFVIS ---
Vital Signs 05/09/24 11:11 Height 5 ft 10 in Weight 221 lb BMI 31.7 Intake Visit Reasons: PO RT RF/SM dupuytrens 04/27/24 AR Intake Note: Kenrick is a 58 year old male who presents today for a post operative RT RF & SF dupuytrens, DOS 04/27/24 AR. Patient reports he is doing well, states mild pain in his palm. Allergies penicillin V Allergy (Intermediate, Verified 05/09/24 11:12) hives bee stings Allergy (Severe, Uncoded 05/09/24 11:12) hives, anaphylaxis HPI HPI PO RT RF/SM dupuytrens 04/27/24 AR: Details: Patient is a 58-year-old male who presents for postoperative evaluation status post right ring finger and small. Partial Dupuytren's fasciectomy, DOS 04/27/2024. Today, the patient reports that he is feeling well, and that he is only experiencing minimal discomfort in the right palm at baseline. The patient reports that he was surprised at how many sutures were in the incisions, as he did not think is incisions would be this large. Denies any numbness or tingling in the right upper extremity. No other acute complaints or concerns at this time. [facility] Medical History Serrated adenoma of colon GERD (gastroesophageal reflux disease) Alcohol use Laceration of liver, closed Anal pain Herniated disc IBS (irritable bowel syndrome) Lactose intolerance Hypertension History of anal fissures History of adenomatous polyp of colon Surgical History Hx of colonoscopy History of hemorrhoidectomy History of lumbar discectomy History of cholecystectomy Social History Household Members: Other Household Members Other:: mother Housing: House Are you a primary home health care case manager to a significant other at home: No Do you presently have visiting nurse or other home services: No Alcohol intake: current Alcohol intake frequency: 3 or more drinks per day Patient Tobacco Use Status: Never used Tobacco Substance Use Type: Marijuana service: No Current occupational status: employed 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, 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 Physical Exam Vital Signs: BMI result Body Mass Index 31.7 Const General: cooperative, healthy appearing and no acute distress Orientation/consciousness: patient oriented x3 HEENT Head: Yes normocephalic and Yes atraumatic Eyes EOM: EOMs intact bilaterally Resp Effort & Inspection: normal respiratory effort and able to speak in complete sentences Cardio Jugular venous distension: no JVD Skin General skin exam: turgor normal Rashes: no rashes Neuro General: patient oriented x3 Extrem Other: Evaluation of right Upper Extremity: The patient is alert, oriented, and in no acute distress Skin: Well-approximated well-healing incision sites noted over the 4th and 5th metacarpals and digits of the right hand Sutures in place Neuro: Median, Ulnar, Radial nerves motor and sensory intact and sensation is normal to the tips of all digits Vascular: Cap refill brisk ROM: Patient is able to make a closed fist with all digits of the right hand fully and without difficulty With encouragement, patient is able to fully extend all digits of the right hand Psych Appearance: grossly normal Affect: normal affect Attitude: cooperative Assessment & Plan Assessment & Plan (1) Dupuytren's contracture of right hand: Comment: RF & SF Code(s): M72.0 - Palmar fascial fibromatosis [Dupuytren] Category: Medical Plan 1. Status post Dupuytren's partial fasciectomy of the right ring and small fingers DOS 04/27/2024 Patient appears to be recovering well postoperatively Patient is educated about the typical recovery course Sutures removed, Steri-Strips applied Patient is educated that he can now wash the incision site with soap and water in the sink of the shower, but should avoid submerging the hand for a further 2 weeks Patient was advised she continue avoiding lifting anything heavier than a cell Phone in the operative hand Patient is also educated that he should follow-up with occupational therapy today for fitting into a night extension splint and beginning to work on range of motion of the right hand Patient was amenable to this plan Patient will follow-up in 2 weeks for reassessment, sooner with any acute concerns Coding Level of Care Code Global (77516) Diagnoses Dupuytren's contracture of right hand M72.0
== END 2024-05-09 12:43 | disposition home or self-care (01) ==
PROVIDERS: PCP Internal Medicine
DX: M72.0 Palmar fascial fibromatosis [Dupuytren] (principal)
CPT/HCPCS: 99024

== ENCOUNTER 2024-05-30 10:55 | Day surgery (SDC) | payer OTHER, SELFPAY ==
[2024-05-26 11:01] VITALS: BMI 31.7
--- NOTE | 2024-05-29 10:36 | HO.ANESPROP2 ---
Documented by User: Salena Butterfield NP 05/29/24 10:37 HPI - Anesthesia Eval Consult details Narrative: 58yo M for Colonoscopy with possible Polypectomy s/p Right 4th and 5th finger Dupuytrens Contracture Release 04/2024 with GA-LMA 4 ETOH daily: >3 PMFSH Active Problems Active Problems: All Active Problems Dupuytren's contracture of right hand (Acute) Anal pain (Acute) Serrated adenoma of colon (Acute) Herniated disc (Acute) IBS (irritable bowel syndrome) (Acute) Lactose intolerance (Acute) Hypertension (Acute) History of anal fissures (Acute) History of adenomatous polyp of colon (Acute) Past Medical History Medical History (Updated 05/26/24 @ 10:57 by Tova Valdes RN) Serrated adenoma of colon GERD (gastroesophageal reflux disease) Alcohol use Laceration of liver, closed Herniated disc IBS (irritable bowel syndrome) Lactose intolerance Hypertension History of anal fissures History of adenomatous polyp of colon Family History Family history of problems with anesthesia: No Surgical History Surgical History (Updated 05/26/24 @ 10:59 by Tova Valdes RN) Hx of hand surgery Hx of rectal sphincterotomy Hx of colonoscopy History of hemorrhoidectomy History of lumbar discectomy History of cholecystectomy History of Problems with Anesthesia: No Social History Social History Household Members: Other Household Members Other:: mother Housing: House Are you a primary healthcare liaison to a significant other at home: No Do you presently have visiting nurse or other home services: No Alcohol intake: current Alcohol intake frequency: a few times a week Patient Tobacco Use Status: Never used Tobacco Use of substances other than those prescribed or required for medical reasons: Yes Substance Use Type: Marijuana Substance Use Frequency: Weekly Have you been hit, kicked, punched, or otherwise hurt by someone within the past year? 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 Meds Allergies Allergy/AdvReac Type Severity Reaction Status Date / Time bee pollen [bee stings] Allergy Severe Anaphylaxis Verified 05/26/24 10:57 /hives penicillin V Allergy Intermediate hives Verified 05/09/24 11:12 Home Medications ?Medication ?Instructions ?Recorded ?Confirmed ?Last Taken ?Type cholecalciferol (vitamin D3) 50 50 mcg PO DAILY 01/28/22 05/26/24 Unknown History mcg (2,000 unit) tablet omeprazole 20 mg capsule,delayed 20 mg PO DAILY PRN Abdominal Pain 01/28/22 05/26/24 Unknown History release thiamine HCl (vitamin B1) 100 mg 1 tab PO DAILY 01/28/22 05/26/24 Unknown History tablet (Vitamin B-1) epinephrine 0.3 mg/0.3 mL 0.3 mg IM ONCE PRN Anaphylaxis 04/10/22 05/26/24 Unknown History injection, auto-injector Exam Height,Weight and Vital Signs: Height 5 ft 10 in Weight 100.244 kg Assessment and Plan Assessment Anesthesia Assessment: Chart Reviewed Final Anesthetic Review Family History of Problems with Anesthesia: No History of Problems with Anesthesia: No Documented by User: Osito Quintana MD 05/30/24 11:39 [facility] Past Medical History Medical History (Updated 05/26/24 @ 10:57 by Tova Valdes RN) Serrated adenoma of colon GERD (gastroesophageal reflux disease) Alcohol use Laceration of liver, closed Herniated disc IBS (irritable bowel syndrome) Lactose intolerance Hypertension History of anal fissures History of adenomatous polyp of colon Surgical History Surgical History (Updated 05/26/24 @ 10:59 by Tova Valdes RN) Hx of hand surgery Hx of rectal sphincterotomy Hx of colonoscopy History of hemorrhoidectomy History of lumbar discectomy History of cholecystectomy Social History Social History Household Members: Other Household Members Other:: mother Housing: House Are you a primary healthcare liaison to a significant other at home: No Do you presently have visiting nurse or other home services: No Alcohol intake: current Alcohol intake frequency: a few times a week Patient Tobacco Use Status: Never used Tobacco Use of substances other than those prescribed or required for medical reasons: Yes Substance Use Type: Marijuana Substance Use Frequency: Weekly Have you been hit, kicked, punched, or otherwise hurt by someone within the past year? 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 Meds Allergies Allergy/AdvReac Type Severity Reaction Status Date / Time bee pollen [bee stings] Allergy Severe Anaphylaxis Verified 05/26/24 10:57 /hives penicillin V Allergy Intermediate hives Verified 05/09/24 11:12 Home Medications ?Medication ?Instructions ?Recorded ?Confirmed ?Last Taken ?Type cholecalciferol (vitamin D3) 50 50 mcg PO DAILY 01/28/22 05/26/24 Unknown History mcg (2,000 unit) tablet omeprazole 20 mg capsule,delayed 20 mg PO DAILY PRN Abdominal Pain 01/28/22 05/26/24 Unknown History release thiamine HCl (vitamin B1) 100 mg 1 tab PO DAILY 01/28/22 05/26/24 Unknown History tablet (Vitamin B-1) epinephrine 0.3 mg/0.3 mL 0.3 mg IM ONCE PRN Anaphylaxis 04/10/22 05/26/24 Unknown History injection, auto-injector Exam Airway Mallampati Class: III TM Dist: >3cm Neck ROM: Full Assessment and Plan Assessment Anesthesia Assessment: Anesthesia Plan Discussed Final Anesthetic Review NPO: Yes ASA Class: II Final Preanesthetic Review: No Changes in Pt Med Stat, Meds/Allgs Chart Reviewed, Consent Obtained/Reviewed and Anes Risks/Benef Reviewed Patient Risk: Low Procedure Risk: Low Anesthetic Plan Anesthetic Plan: TIVA Disposition: Standard PACU
[2024-05-30 11:22] VITALS: BP 160/97; PULSE 97; RESP 14; TEMP 36.7; O2SAT 97; BMI 30.5
[2024-05-30] MEDS: Lactated Ringers 1,000 ML 100 ML IVCONT (11:33)
--- NOTE | 2024-05-30 11:38 | MHC.SHP ---
Pre-Procedural Eval Section A - 24 Hr Update-Section A only Date of Service: 05/30/24 The patient is an INPATIENT: No Changes since office visit: No Cold of Flu in the past 2 weeks, No New Medical Problems, No Changes in Medication and No Patient answered all questions The patient has been examined within 24 hours of the surgical procedure. The History & Physical has been completed within 30 days and I have reviewed it.: Yes Section B - Complete if H&P > 30 days Chief Complaint: hx colon polysp Allergies: Allergies Allergy/AdvReac Type Severity Reaction Status Date / Time bee pollen [bee stings] Allergy Severe Anaphylaxis Verified 05/26/24 10:57 /hives penicillin V Allergy Intermediate hives Verified 05/09/24 11:12 Plan I have reviewed the history and physical and performed a pertinent physical examination on my patient. No changes have occurred unless specified. Time Spent With Patient Time: Total time managing care of this patient today ____ minutes.
[2024-05-30 12:16] VITALS: BP 133/88; PULSE 92; RESP 16; TEMP 36.3; O2SAT 96
--- OUTSIDE RECORDS SUMMARY | 2024-05-30 12:19 | XMS_ITS ---
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 Name Role Phone Alejo Díaz Primary Care Provider ALLERGIES Allergen (clinical drug ingredient) Drug/Non Drug Allergy documented on EMR Reaction Allergy Type Onset Date Status Penicillin urticaria Drug Allergy Active bee stings (uncoded) swelling Allergy Active REASON FOR VISIT 6 month f/u, Follow up hypertension MEDICATIONS Medication SIG (Take, Route, Frequency, Duration) Notes Start Date End Date Status amLODIPine Besylate 10 MG 1 tablet Orally Once a day Active Omeprazole 20 MG 1 capsule 30 minutes before morning meal, as needed Orally Once a day for 90 days Active Thiamine HCl 100 MG 1 tablet Orally Once a day Active Vitamin D 50 MCG (1999) 1 capsule Ora lly Once a day 05/30/2021 Active EpiPen 2-Denzel 0.3 MG/0.3ML as directed Injection Once Active SOCIAL HISTORY Tobacco Use: Social History Observation Description Date Details (start date - stop date) Never Smoker NA - NA Sex Assigned At : Social History Observation Description Sex Assigned At Unknown Tobacco Use/Smoking Question Answer Notes Patient is a nonsmoker Additional Findings: Tobacco Non-User Cu rrent non-smoker, currently using no form of tobacco Alcohol Screen Question Answer Notes Did you have a drink contain ing alcohol in the past year? Yes How often did you have a dri nk containing alcohol in the past year? 2 to 3 times a week (3 points) How many drinks did you have on a typical day when you were drinking in the past year? 5 or 6 drinks (2 points) How often did you have 6 or more drinks on one occasion in the past year? Weekly (3 points) Points 8 Interpretation Positive PROBLEMS Problem Type ICD Code Onset Dates Problem Status W/U Status Risk SNOMED Code Notes Problem Tubular adenoma (D36.9) Active confirmed 178966909 Problem History of gastroesophageal reflux (GERD) (Z87.19) Active confirmed 09248092331318 VITAL SIGNS BMI 30.13 kg/m2 10/18/2023 Height 70.00 in 10/18/2023 Weight 210 lbs 10/18/2023 Encounters Encounter Location Date Provider Diagnosis Alejo Díaz , [address] [phone] 10/18/2023 Alejo Díaz Essential hypertensi on I10 ; Tubular adenoma D36.9 ; History of gastroesophageal reflux (GERD) Z87.19 ; Alcohol abuse F10.10 ; Vitamin D deficiency E55.9 and Prostate cancer screening Z12.5 ASSESSMENTS Encounter Date Diagnosis Assessment Notes Treatment Notes Treatment Clinical Notes 10/18/2023 Essential hypertensi on (ICD-10 - I10) Check BP in the office 10/18/2023 Tubular adenoma (ICD-10 - D36.9) Follow up with Surgery; Dr. Hall. Next colonoscopy due in early 2024. 10/18/2023 History of gastroesophageal reflux (GERD) (ICD-10 - Z87.19) 10/18/2023 Alcohol abuse (ICD-1 0 - F10.10) 10/18/2023 Vitamin D deficiency (ICD-10 - E55.9) 10/18/2023 Prostate cancer screening (ICD-10 - Z12.5) PLAN OF TREATMENT Medication Medication Name Sig Start Date Stop Date Notes amLODIPine Besylate 10 MG 1 tablet Orally Once a day Omeprazole 20 MG 1 capsule 30 minutes before morning meal, as needed Orally Once a day for 90 days Thiamine HCl 100 MG 1 tablet Orally Once a day 08/05/2019 Vitamin D 50 MCG (1999 [place]) 1 capsule Orally Once a day 02/2022 EpiPen 2-Denzel 0.3 MG/0.3ML as directed Injection Once Treatment Notes Assessment Notes Essential hypertension Check BP in the o ffice Tubular adenoma Follow up with Surge ry; Dr. Hall. Next colonoscopy due in early 2024. Pending Test Test Name Order Date CBC w DIFF 10/18/2023 LIPOPROTEIN FRACTIONATION (LIPID PANEL) 10/18/2023 PROFILE, FASTING 10/18/2023 TSH (THYROID STIMULATING HORMONE) 2023 VITAMIN D 25-OH TOTAL 10/18/2023 Lipase 10/18/2023 PSA,Total (Free>4and<10) 10/18/2023 Next Appt Details Follow Up: 4 Months, Reason: follow up visit,review lab work Progress Notes * Examination Category Sub-Category Detail Notes General Examination GENERAL APPEARANCE: in no ac point lay ira distress, well developed, well nourished LUNGS: breathing comfortabl y at rest SKIN: PSYCH: alert, oriented, cog nitive function intact History and Physical Notes * HPI (History of Present Illness) Category Sub-Category Detail Notes New symptom(s) Telehealth Location of provider:: [facility] k[facility]'s home address Location of patient:: Address listed in demographics for today's visit Patient identification confirmed using:: Name, Telehealth method:: Video co nference where patient is visible to the provider of care Consent:: Patient verbally c onsented to treatment, Patient verbally consented to billing insurance company, Patient informed of any privacy concerns related to method of visit Total time spent with patient (mins): 33 Disclaimer: This Telehealth visit is being conducted per CDC recommendations due to the COVID-19 outbreak. Depression Screening PHQ-9 Little inte rest or pleasure in doing things: Not at all Feeling down, depressed, or hopeless: No t at all Trouble falling or staying asleep, or sl eeping too much: Not at all Feeling tired or having little energy: N ot at all Poor appetite or overeating: Not at all Feeling bad about yourself o r that you are a failure, or have let yourself or your family down: Not at all Trouble concentrating on thi ngs, such as reading the newspaper or watching television: Not at all Moving or speaking so slowly that other people could have noticed; or the opposite, being so fidgety or restless that you have been moving around a lot more than usual: Not at all Thoughts that you would be b alida off or of hurting yourself in some way: Not at all Total Score: 0 Interpretation and Intervention Depression Jeramie baer Findings: Negative Follow-Up for Depression: : Review of PH Q-9 found negative result; no follow-up needed Fall Risk Fall History Have you had two or more fal ls in the past year?: No Have you had any falls with injury in th e past year?: No Fall Risk Assessment:: No falls in the p ast year Communication Needs [facility] Communication Needs - [facility] He aring Impairment?: No Vision Impairment?: Yes wears glasses fo r distance Cognitive Impairment?: No
--- OUTSIDE RECORDS SUMMARY | 2024-05-30 12:19 | XMS_ITS ---
Author Organization Alejo Díaz DO, FACP Address [address], [place] [id number] Care Team Providers Care Baccarat Dealer Name Role Phone Alejo Díaz Primary Care Provider [phone] REASON FOR VISIT Consult Encounters Encounter Location Date Provider Diagnosis Alejo Díaz DO, FACP [address] [place] [phone] 03/09/2024 Alejo Díaz PLAN OF TREATMENT No Information
--- NOTE | 2024-05-30 12:20 | W.PM.OPN ---
Operative Note Operative Note Date of Service: 05/30/24 Narrative: Preop diagnosis: History of flat serrated adenoma in the hepatic flexure Postop diagnosis: Small polyp about 8 mm, mid transverse colon Procedure: Colonoscopy with polypectomy using cold forceps Surgeon: Abebe Hall MD The patient is a 58-year-old male who had a flat serrated adenoma in the hepatic flexure removed last year on colonoscopy. In view of the flat nature of the adenoma along with the serrated pathology, I recommended repeating colonoscopy within 1 year there were complete removal. He understood the technique of the planned procedure as well as the risks, benefits, and alternatives. The patient was brought to the operating room and placed in left lateral decubitus position under monitored anesthesia care. A surgical time-out was done. A full digital rectal exam was done and this did not reveal any significant anal lesions. The tip of the Olympus colonoscope was gently introduced through the anal orifice advanced with insufflation all the way to the cecum. The cecum was intubated. The cecum was identified by visualization of the ileocecal valve as well as the appendiceal orifice. The cecal mucosa was unremarkable. The scope was gradually withdrawn with careful examination of the entire colonic mucosa being done with scope withdrawal. The patient had adequate bowel prep so it was unlikely that any lesion may have been missed. There was no lesion or any abnormal mucosa in the hepatic flexure. Multiple passes were done. There was note of a polyp in the mid transverse colon probably about 8 mm in size. This was removed with multiple bites of the cold forceps. The rectum was reached and there were no lesions seen. The anal canal was unremarkable. The scope was then withdrawn completely with desufflation. The patient tolerated the procedure well. There were no immediate complications. Depending on the path report, I may recommend repeating the colonoscopy in 3-5 years.
--- OUTSIDE RECORDS SUMMARY | 2024-05-30 12:20 | XMS_ITS | Patient Health Record ---
Author Organization Alejo Mauri Bre , FACP Address [address] [place] [address] [phone] Care Team Providers Care Envelope Fold Operator Name Role Phone Alejo Díaz Primary Care Provider [phone] ALLERGIES Allergen (clinical drug ingredient) Drug/Non Drug Allergy documented on EMR Reaction Allergy Type Onset Date Status Penicillin urticaria Drug Allergy Active bee stings (uncoded) swelling Allergy Active RESULTS Component Value Reference Range Notes XR finger LT min 2V Reviewed date:02/24/2024 10:52:06 AM Interpretation:Normal Performing Lab: Notes/Report: [address] [address] XRay Report Signed Patient: Kenrick Alves MR#: [id number] : 1965 Acct:[id number] Age/Sex: 58 / M ADM Date: 02/24/24 Loc: .ED Attending Dr: Ordering Physician: Generic ED Physician Date of Service: 02/24/24 Procedure(s): XR finger LT min 2V Accession Number(s): [id number] cc: Alejo Díaz DO; Generic ED Physician EXAMINATION: XR FINGER, LEFT CLINICAL INFORMATION: Index finger laceration COMPARISON: None available. TECHNIQUE: Three views of the left index finger. FINDINGS: The bones and soft tissues are unremarkable. No fracture. Alignment is anatomic. Joint spaces are maintained. No radiopaque foreign body seen. XR/XR finger LT min 2V IMPRESSION: Normal finger radiographs. Electronically signed by: Jordon Hong MD 02/24/2024 09:41 AM [facility] Dictated By: Jordon Hong MD Signed By: <Electronically signed by Jordon Hong MD in OV> 02/24/2441 DD/ 3 TD/TT: 02/24/24816 Log Marker: NATALIIA REASON FOR REFERRAL No Information MEDICATIONS Medication SIG (Take, Route, Frequency, Duration) [...] 0.3 MG/0.3ML as directed Injection Once Active IMMUNIZATIONS Vaccine Route Administration Date Status Comme nts Influenza Unknown 01/29/2014 Administered Influenza Quad IM Intramuscular 12/21/2014 Administered Influenza Quad IM Intramuscular 06/29/2018 Administered TDaP IM Intramuscular 06/29/2018 Administered COVID-19 Pnakaj (J/J) Unknown 07/26/2020 Administered Influenza Quad IM Intramuscular 03/17/2023 Administered SOCIAL HISTORY Tobacco Use: Social History Observation [...] W/U Status Risk SNOMED Code Notes Problem Rectal bleeding (K62.5) Active confirmed 43260396 Problem Vitamin D deficiency (E55.9) Active confirmed 41109471 Problem Essential hypertension (I10) Active confirmed 84608691 Problem Palmar fasciitis (M72.0) Active confirmed 819142585 Problem Alcohol abuse (F10.10) Active confirmed 86209307 Problem Tubular adenoma (D36.9) Active confirmed 352866717 Problem 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) Active confirmed 765290609 Problem Decreased hearing, unspecified laterality (H91.90) Active confirmed 926231661 Problem History of gastroesophageal reflux (GERD) (Z87.19) Active confirmed 27120584854334 VITAL SIGNS Height 70.00 in 10/18/2023 Weight 210 lbs 10/18/2023 BMI 30.13 kg/m2 10/18/2023 Encounters Encounter Location Date Provider Diagnosis Alejo Díaz DO, [address] [id number] 02/23/2024 Alejo Díaz DO, [address] [id number] 06/04/2023 Alejo Díaz Essential hypertensi on I10 Alejo Díaz DO, [address] [id number] 03/09/2024 Alejo Díaz DO, [address] [id number] 10/18/2023 Alejo Díaz Essential hypertensi on I10 ; Tubular adenoma D36.9 ; History of gastroesophageal reflux (GERD) Z87.19 ; Alcohol abuse F10.10 ; Vitamin D deficiency E55.9 and Prostate cancer screening Z12.5 ASSESSMENTS Encounter Date Diagnosis Assessment Notes Treatment Notes Treatment Clinical Notes 06/04/2023 Essential hypertensi on (ICD-10 - I10) 10/18/2023 Essential hypertensi on (ICD-10 - I10) Check BP in the office 10/18/2023 Tubular adenoma (ICD-10 - D36.9) Follow up with Surgery; Dr. Hall. Next colonoscopy due in early 2024. 10/18/2023 History of gastroesophageal reflux (GERD) (ICD-10 - Z87.19) 10/18/2023 Alcohol abuse (ICD-1 0 - F10.10) 10/18/2023 Vitamin D deficiency (ICD-10 - E55.9) 10/18/2023 Prostate cancer screening (ICD-10 - Z12.5) PLAN OF TREATMENT Pending Test Test Name Order Date CBC w DIFF 10/18/2023 LIPOPROTEIN FRACTIONATION (LIPID PANEL) 10/18/2023 PROFILE, FASTING 10/18/2023 TSH (THYROID STIMULATING HORMONE) 2023 VITAMIN D 25-OH TOTAL 10/18/2023 Lipase 10/18/2023 PSA,Total (Free>4and<10) 10/18/2023 Insurance Providers Payer Name Payer Address Payer Phone Subscriber Number Group Number Insured Name Patient Relationship to Insured Coverage Start Date Coverage End Date [facility] [address] [place] [address] [place] [phone] [id number] Kenrick Alves Self - patient is the insured 2 MEDICAL (GENERAL) HISTORY Medical History History ICD Code low back pain hemorrhoids anal fissure irritable bowel syndrome lactose intolerance gallstones hypertension gastroesophageal reflux disease (GERD) pyloric stenosis herniated lumbar disc tubular adenoma, serrated adenoma Lumbar disc herniation with myelopathy M 51.06 Alcohol abuse F10.10 Surgical History Surgery Date(Month/Year) repair of a liver laceration secondary t o a right rib fracture cholecystectomy pyloric stenosis repair lumbar disc surgery 08/2018 sphincterotomy 05/2020
--- OUTSIDE RECORDS SUMMARY | 2024-05-30 12:20 | XMS_ITS ---
Author Organization Alejo Díaz DO, FACP Address [address] [place], [place] [phone] Care Team Providers Care Security Orderly Name Role Phone Alejo Díaz Primary Care Provider REASON FOR VISIT 4 month f/u Encounters Encounter Location Date Provider Diagnosis Alejo Díaz DO, FACP [address] [place] [address] [phone] 02/23/2024 Alejo Díaz PLAN OF TREATMENT No Information
[2024-05-30 12:31] VITALS: BP 155/98; PULSE 69; RESP 16; TEMP 36.3; O2SAT 99
== END 2024-05-30 13:21 | disposition home or self-care (01) ==
PROVIDERS: PCP Internal Medicine; Visit Provider Surgery
PROC: 0DBE8ZZ Excision of Large Intestine, Via Natural or Artificial Opening Endoscopic (ICD-10-PCS; CPT 45380; principal; 2024-05-30 13:00)
DX: Z12.11 Encounter for screening for malignant neoplasm of colon (principal); Z86.0101 Personal history of adenomatous and serrated colon polyps; D12.3 Benign neoplasm of transverse colon; K58.9 Irritable bowel syndrome, unspecified; K21.9 Gastro-esophageal reflux disease without esophagitis; I10 Essential (primary) hypertension; E73.9 Lactose intolerance, unspecified; F10.90 Alcohol use, unspecified, uncomplicated; Z79.899 Other long term (current) drug therapy; Z88.0 Allergy status to penicillin; Z90.49 Acquired absence of other specified parts of digestive tract; Z98.890 Other specified postprocedural states
CPT/HCPCS: 45380; 88305; J2003; J2704

== ENCOUNTER → 2024-05-30 10:55 | Outpatient (BNV) | payer OTHER, SELFPAY | PROVIDERS: PCP Internal Medicine; Visit Provider Surgery | DX: K63.5 Polyp of colon (principal); Z86.0101 Personal history of adenomatous and serrated colon polyps | CPT/HCPCS: 45380 ==

== ENCOUNTER 2024-06-06 11:35 | Outpatient (RCR) | payer OTHER, SELFPAY ==
--- NOTE | 2024-05-22 16:15 | MHC.OT.EP ---
[address] [phone] Occupational Therapy Plan of Care Patient Name: Kenrick Alves Date of Evaluation: 05/22/24 Diagnosis: R SF : Dupuytren's Contracture post surgical Pain Location: R SF - volar side Pain Score: 4 Pain Scale Used: Numeric (0 - 10) Aggravating Factors: Alleviating Factors: Assessment: Pt is a 58 yr. old L hand dominant male who had surgery fasciectomy surgery of his R SF; pt reports it had been contracted for several years, but it was not his dominant hand so he had not made it an immediate concern. He presents today w/ the ability to make a composite fist but has a 20 lag of his PIP J (R SF). His stitches have been removed and there is no open wound. Pt's scar is dark pink/red in color and cool to the touch. He is in the mid phase of Eschar. 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 Thank you once again for your referral.
== END 2024-07-07 09:25 | disposition home or self-care (01) ==
LOC: HO.OT 11:35
PROVIDERS: PCP Internal Medicine; Visit Provider Orthopaedic Surgery
DX: M72.0 Palmar fascial fibromatosis [Dupuytren] (principal)
CPT/HCPCS: 29130; 97035; 97140; 97166; 97535; 97760

== ENCOUNTER 2024-06-19 14:59 | Outpatient (AMB) | payer OTHER, SELFPAY ==
[2024-06-19 15:00] VITALS: BMI 30.5
--- NOTE | 2024-06-19 15:00 | MHC.OFFVIS ---
Vital Signs 06/19/24 15:00 Height 5 ft 10 in Weight 212 lb 11.937 oz BMI 30.5 Intake Visit Reasons: colonoscopy follow up Intake Note: This patient presents for a follow-up assessment status post colonoscopy. Pt c/o; reports no complaints. Tone Regulator Required: No Accompanied by: Self / Same As Patient Allergies bee pollen [bee stings] Allergy (Severe, Verified 06/19/24 15:06) Anaphylaxis/hives penicillin V Allergy (Intermediate, Verified 06/19/24 15:06) hives Medication List - Last Reconciled 06/19/24 by Abebe Hall MD amlodipine 5 mg See Protocol PO DAILY cholecalciferol (vitamin D3) 50 mcg PO DAILY epinephrine 0.3 mg IM ONCE PRN omeprazole 20 mg PO DAILY PRN oxycodone-acetaminophen 5-325 mg 1 tab PO Q6H PRN sodium,potassium,mag sulfates 17.5-3.13-1.6 gram (Suprep Bowel Prep Kit) DILUTE; drink full amount early evening before AND next morning at least 2 hr before procedure; follow w 960 mL water PO thiamine HCl (vitamin B1) (Vitamin B-1) 100 mg PO DAILY HPI HPI colonoscopy follow up: Details: He underwent colonoscopy for screening last 05/30/2024. He tolerated the procedure well. He had good bowel prep Denies any problems postprocedure. [facility] Medical History (Updated 06/19/24 @ 15:24 by Abebe Hall MD) Tubular adenoma Serrated adenoma of colon GERD (gastroesophageal reflux disease) Alcohol use Laceration of liver, closed Herniated disc IBS (irritable bowel syndrome) Lactose intolerance Hypertension History of anal fissures History of adenomatous polyp of colon Surgical History History of colonoscopy with polypectomy (~05/30/24) Hx of hand surgery Hx of rectal sphincterotomy Hx of colonoscopy History of hemorrhoidectomy History of lumbar discectomy History of cholecystectomy Social History Household Members: Other Household Members Other:: mother Housing: House Are you a primary restorative care technician to a significant other at home: No Do you presently have visiting nurse or other home services: No Alcohol intake: current Alcohol intake frequency: a few times a week Patient Tobacco Use Status: Never used Tobacco Substance Use Type: Marijuana service: No Current occupational status: employed 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, 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 Review of Systems Const Denies chills and Denies fever(s) Card Denies chest pain, Denies dyspnea and Denies dyspnea on exertion Resp Denies cough, Denies dyspnea and Denies dyspnea on exertion GI Denies hematochezia and Denies change in bowel habits Denies hematuria and Denies difficulty urinating Musc Denies back pain and Denies limited range of motion Neuro Denies focal weakness and Denies convulsions Psych Denies depression and Denies mood swings Physical Exam Vital Signs: BMI result Body Mass Index 30.5 Const Other: Looks well General: comfortable and no acute distress Resp Effort & Inspection: normal respiratory effort Cardio Rate: regular rate GI Palpation (GI): Soft to palpation, not firm, nontender and no guarding Assessment & Plan Assessment & Plan (1) Tubular adenoma: Code(s): D36.9 - Benign neoplasm, unspecified site Category: Medical Plan: Status post colonoscopy. I removed 1 small polyp in the transverse colon. This was a tubular adenoma on path report He has a history of a serrated adenoma in the past. I would recommend repeating the colonoscopy in 3 years He understands the plan and is comfortable with this. Coding Level of Care Code Est Pt Level 2 (56852) Diagnoses Tubular adenoma D36.9
--- OUTSIDE RECORDS SUMMARY | 2024-06-19 17:51 | XMS_ITS | Patient Health Record ---
Author Organization [facility] Address [address] [facility] [place] [address] Care Team Providers Care Hotel Recreational Facilities Manager Name Role Phone Alejo Díaz MD Primary Care Provider Unavail able Suman Timmons Unavailable [phone] Allergies Allergen (clinical drug ingredient) Drug/Non Drug Allergy documented on EMR Reaction Allergy Type Onset Date Status Bee Sting Swelling Allergy Active Penicillin urticaria Drug Allergy Active Reason For Referral No Information Medications Medication SIG (Take, Route, Frequency, Duration) Notes Start Date End Date Status Vitamin D 50 MCG (1999) 1 capsule Ora lly Once a day for 30 day(s) Active Vitamin B Complex Ac tive Thiamine HCl 100 MG 1 tablet Orally Once a day for 30 day(s) Active amLODIPine Besylate 5 MG 1 tablet Orally Once a day Active Omeprazole 20 MG 1 capsule 30 minutes before morning meal Orally Once a day for 30 day(s) Active EpiPen 2-Denzel 0.3 MG/0.3ML as directed Injection Active Immunizations Vaccine Route Administration Date Status Comme nts COVID-19 Adi & Adi/Pankaj Unknown 08/17/2020 A dministered Social History Tobacco Use: Social History Observation Description Date Details (start date - stop date) Never Smoker NA - NA Tobacco Use/Smoking Question Answer Notes Are you a: nonsmoker Additional Findings: Tobacco Non-User Current no n-smoker Alcohol Screen Question Answer Notes Did you [...] year? 5 or 6 drinks (2 points) Points 5 Interpretation Positive Tobacco use other than smoking: Question Answer Notes Are you an other tobacco user? No Plan Of Treatment Pending Test Test Name Order Date X ray : Foot, left 3V 05/08/2022 Insurance Providers Payer Name Payer Address Payer Phone Subscriber Number Group Number Insured Name Patient Relationship to Insured Coverage Start Date Coverage End Date [facility] [address] [facility] [place] [address] [id number] Kenrick Alves Self - patient is the insured Medical (General) History Medical History History ICD Code Hemorrhoids Anal Fissure Irritable bowel syndrome Lactose intolerance Gallstones Hypertension Gastroesophageal reflux disease (GERD) Pyloric stenosis Herniated disc Alcohol abuse tubular adenoma,serrated adenoma Lumbar disc hertniation w/myeopathy covid-19 Gall bladder problems High blood pressure Chicken pox Surgical History Surgery Date(Month/Year) gall bladder removal 2002 hemorroid surgery 2019 back surgery 2019 liver laceration 09/1988 Hospitalization History Reason Date(Month/Year) [facility] [place]- acute pancreatitis 2 nights IV flui ds 01/2022
== END 2024-06-19 15:15 | disposition home or self-care (01) ==
PROVIDERS: PCP Internal Medicine; Visit Provider Surgery
DX: D36.9 Benign neoplasm, unspecified site (principal)
CPT/HCPCS: 99212

== ENCOUNTER → 2024-06-19 14:59 | Outpatient (BNVA) | payer OTHER, SELFPAY | PROVIDERS: PCP Internal Medicine; Visit Provider Surgery ==

== ENCOUNTER 2024-06-21 10:01 | Outpatient (AMB) | payer OTHER, SELFPAY ==
--- NOTE | 2024-06-21 10:05 | A.OFFVIS_ITS ---
Vital Signs 06/21/24 10:06 Height 5 ft 10 in Weight 212 lb BMI 30.4 Handedness Left Intake Visit Reasons: PO RT RF/SM dupuytrens 04/27/24 AR Intake Note: Kenrick is a 58 year old left hand dominant male who presents today for a post operative visit about 2 months s/p right ring finger and small finger Dupuytrens 04/27/24. At his last visit he was advised of a 2lb weight limit and referred to ccupational therapy. Patient report he has completed OT and states he found it did help. He says OT also provided him with a splint and after a few hours of him wearing it he says he is unable to make a closed fist without pain. Patient would like to discuss work status. Allergies bee pollen [bee stings] Allergy (Severe, Verified 06/21/24 10:06) Anaphylaxis/hives penicillin V Allergy (Intermediate, Verified 06/21/24 10:06) hives HPI HPI PO RT RF/SM dupuytrens 04/27/24 AR: Details: Kenrick is a 58 year old left hand dominant male who presents today for a post operative visit about 2 months s/p right ring finger and small finger Dupuytrens 04/27/24. At his last visit he was advised of a 2lb weight limit and referred to ccupational therapy. Patient report he has completed OT and states he found it did help. He says OT also provided him with a splint and after a few hours of him wearing it he says he is unable to make a closed fist without pain. Patient would like to discuss work status. [facility] Medical History (Updated 06/19/24 @ 15:24 by Abebe Hlal MD) Tubular adenoma Serrated adenoma of colon GERD (gastroesophageal reflux disease) Alcohol use Laceration of liver, closed Herniated disc IBS (irritable bowel syndrome) Lactose intolerance Hypertension History of anal fissures History of adenomatous polyp of colon Surgical History History of colonoscopy with polypectomy (~05/30/24) Hx of hand surgery Hx of rectal sphincterotomy Hx of colonoscopy History of hemorrhoidectomy History of lumbar discectomy History of cholecystectomy Social History Household Members: Other Household Members Other:: mother Housing: House Are you a primary infant childcare provider to a significant other at home: No Do you presently have visiting nurse or other home services: No Alcohol intake: current Alcohol intake frequency: a few times a week Patient Tobacco Use Status: Never used Tobacco Substance Use Type: Marijuana service: No Current occupational status: employed 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, 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 Review of Systems Const All systems reviewed & are unremarkable except as noted in HPI and below Physical Exam Vital Signs: BMI result Body Mass Index 30.4 Const General: cooperative, healthy appearing and no acute distress Orientation/consciousness: patient oriented x3 HEENT Head: Yes normocephalic and Yes atraumatic Eyes EOM: EOMs intact bilaterally Resp Effort & Inspection: normal respiratory effort and able to speak in complete sentences Cardio Jugular venous distension: no JVD Skin General skin exam: turgor normal Rashes: no rashes Neuro General: patient oriented x3 Extrem Other: Evaluation of right Upper Extremity: The patient is alert, oriented, and in no acute distress Skin: Well-approximated well-healing incision sites noted over the 4th and 5th metacarpals and digits of the right hand Sutures in place Neuro: Median, Ulnar, Radial nerves motor and sensory intact and sensation is normal to the tips of all digits Vascular: Cap refill brisk ROM: Patient is able to make a closed fist with all digits of the right hand fully and without difficulty Patient does have an approximately 10 degree extensor lag in the right small finger PIP joint With encouragement, patient is able to fully extend all other digits of the right hand Psych Appearance: grossly normal Affect: normal affect Attitude: cooperative Assessment & Plan Assessment & Plan (1) Dupuytren's contracture of right hand: Comment: RF & SF Code(s): M72.0 - Palmar fascial fibromatosis [Dupuytren] Category: Medical Plan 1. Status post Dupuytren's partial fasciectomy of the right ring and small fingers DOS 04/27/2024 Patient appears to be recovering well postoperatively Patient is educated about the typical recovery course Sutures removed, Steri-Strips applied Patient is educated that can gradually return back to full normal activity with the right hand Patient was cleared to return to work with no active restrictions Patient was amenable to this plan Patient will follow-up in 4-6 weeks for reassessment, sooner with any acute concerns Coding Level of Care Code Global (86926) Diagnoses Dupuytren's contracture of right hand M72.0
[2024-06-21 10:06] VITALS: BMI 30.4
--- OUTSIDE RECORDS SUMMARY | 2024-06-21 11:47 | XMS_ITS | Patient Health Record ---
Author Organization [facility] Address [address] [facility] [place] [address] Care Team Providers Care Interpretative Dancer Name Role Phone Alejo Díaz MD Primary Care Provider Unavail able Suman Timmons Unavailable [phone] Allergies Allergen (clinical drug ingredient) Drug/Non Drug [...] Insured Coverage Start Date Coverage End Date [facility] [address] [place] [address] [id number] Kenrick Alves Self - patient is [...] liver laceration 09/1988 Hospitalization History Reason Date(Month/Year) [facility] [place]- acute pancreatitis 2 nights IV flui ds 01/2022
== END 2024-06-21 10:19 | disposition home or self-care (01) ==
PROVIDERS: PCP Internal Medicine
DX: M72.0 Palmar fascial fibromatosis [Dupuytren] (principal)
CPT/HCPCS: 99024

== ENCOUNTER → 2024-06-21 10:01 | Outpatient (BNVA) | payer OTHER, SELFPAY | PROVIDERS: PCP Internal Medicine ==

== ENCOUNTER 2024-10-30 15:07 | Outpatient (AMB) | payer OTHER, SELFPAY ==
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
[2024-10-30 15:15] VITALS: BP 142/89; PULSE 71; RESP 16; TEMP 36.7; O2SAT 98; BMI 31.9
[2024-10-30 16:34] VITALS: BP 136/82
== END 2024-10-30 15:51 | disposition home or self-care (01) ==
LOC: HO.HMCSH 15:07
PROVIDERS: PCP Internal Medicine; Visit Provider Physician Assistant Medical
DX: M25.551 Pain in right hip (principal); M25.552 Pain in left hip; R73.01 Impaired fasting glucose; R22.1 Localized swelling, mass and lump, neck; S46.012A Strain of muscle(s) and tendon(s) of the rotator cuff of left shoulder, initial encounter; Z86.0100 Personal history of colon polyps, unspecified; E78.1 Pure hyperglyceridemia; I10 Essential (primary) hypertension; E66.811 Obesity, class 1; Z68.32 Body mass index [BMI] 32.0-32.9, adult

== ENCOUNTER → 2024-10-30 15:07 | Outpatient (BNVA) | payer OTHER, SELFPAY | PROVIDERS: PCP Internal Medicine; Visit Provider Physician Assistant Medical | DX: Z76.89 Persons encountering health services in other specified circumstances (principal); S46.012A Strain of muscle(s) and tendon(s) of the rotator cuff of left shoulder, initial encounter; M25.551 Pain in right hip; M25.552 Pain in left hip; R22.1 Localized swelling, mass and lump, neck; R73.01 Impaired fasting glucose; E78.1 Pure hyperglyceridemia; I10 Essential (primary) hypertension; E66.811 Obesity, class 1; Z68.32 Body mass index [BMI] 32.0-32.9, adult; Z86.0100 Personal history of colon polyps, unspecified; X58.XXXA Exposure to other specified factors, initial encounter; Y93.9 Activity, unspecified; Y92.9 Unspecified place or not applicable; Y99.9 Unspecified external cause status; Z13.31 Encounter for screening for depression; Z13.39 Encounter for screening examination for other mental health and behavioral disorders | CPT/HCPCS: 83036; 96127 ==

== ENCOUNTER 2024-12-21 15:02 | Outpatient (RCR) | payer OTHER, SELFPAY ==
--- NOTE | 2024-11-24 09:21 | MHC.PT.EP ---
[facility] [place] Office [place] Office [place] Office [address] [phone] F: [phone] F: [phone] F: [phone] F: [phone] Physical Therapy Plan of Care Date of Evaluation: 11/24/24 Date of Surgery: Diagnosis: Pain in L shoulder Pain in R hip, pain in L hip Assessment: 59 L-hand dominant male with L shoulder pain and B hip pain resulting in pain and difficulty with sleeping, prolonged sitting, carrying, painting, and carrying ladders. Examination shows decreased L shoulder, trunk, and L hip ROM, decreased scapular and core strength, breath holding tendencies with poor pressure management, pain, and impaired postural awareness. Recommend PT 2x/week for 6 weeks to address impairments, implement HEP, and optimize functional mobility. 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 Manual therapy to restore motion and function. Therapeutic exercise to improve strength and flexibility. Neuromuscular re-education for posture and balance. Therapeutic activities to return to functional activities of daily living. Electronically signed by: Ramandeep Orantes PT Please sign and return to therapist. Thank you for your referral.
--- NOTE | 2024-12-27 08:49 | MHC.PT.DC ---
[facility] [place] Office [place] Office [place] Office [address] Nunes [address] [phone] F: [phone] F: [phone] F: [phone] F: [phone] Physical Therapy Discharge Report Diagnosis: Pain in L shoulder Pain in R hip, pain in L hip Date of Surgery: Date of Evaluation: 11/24/24 Date of Discharge: 12/27/24 Treatments to Date: 8 Cancellations to Date: 0 No Shows to Date: 0 Discharge Status: Improved Function Independent with HEP Discharge Summary: He has made good progress with improved shoulder ROM and strength. He is I with HEP and feels more aware of positional changes at work to help decrease pain. At this time, recommend d/c to HEP. Electronically signed by: Ramandeep Orantes PT Please sign and return to therapist. Thank you for your referral.
== END 2024-12-27 08:49 | disposition home or self-care (01) ==
LOC: HO.PT 15:02
PROVIDERS: PCP Internal Medicine; Visit Provider Physician Assistant Medical
DX: M25.512 Pain in left shoulder (principal); M25.551 Pain in right hip; M25.552 Pain in left hip; M54.2 Cervicalgia
CPT/HCPCS: 97110; 97112; 97140; 97162; 97530